=== PATIENT | male | born 1975 | race Caucasian/White ===

== ENCOUNTER 2016-09-18 23:53 | Inpatient (IN) | payer OTHER ==
--- NOTE | ~2016-09-18 | DS ---
Unit #: [id number] #: [id number] Patient: GIBRAN CABRERA [id number] [facility] [address] [place] [address] [id number] MR#: [id number] NAME: GIBRAN CABRERA. ROOM: [facility] Age: 41 Sex: M Admission Date: 09/18/2016 : 1975 Discharge Date: 09/22/2016 Attending Physician: Darien Castro M.D. Primary Care Physician: Antonia France M.D. DISCHARGE SUMMARY REASON FOR ADMISSION The patient is a 41-year-old, , white male, admitted after he had presented this facility complaining of ongoing alcohol use and suicidal ideation. HOSPITAL COURSE The patient was admitted to the [facility] unit and placed on suicide precautions. Given his inability to discontinue use of alcohol, the decision was made by this physician to discontinue Suboxone and the patient was placed on detoxification protocols for both alcohol and opioids. The patient exhibited suppressing little in the way of signs or symptoms of withdrawal leading this physician to suspect that the patient may be diverting his Suboxone. Whatever the case, his stay in the hospital was a brief and uneventful one. He was bright and euthymic. On 09/22/2016, he requested discharge on that date and it was so ordered. FINAL DIAGNOSES Opioid use disorder; alcohol use disorder; mood disorder, unspecified; asthma; gastroesophageal reflux disease. DISPOSITION ON DISCHARGE The patient is discharged on the following medications; Protonix 40 mg daily for GERD, Proventil HFA one puff q.4 hours p.r.n. shortness of air, Seroquel 200 mg at bedtime for mood stabilization. DISCHARGE INSTRUCTIONS No dietary or physical restrictions were placed upon the patient at the time of discharge. PROGNOSIS His prognosis remains guarded. Dictated by... Darien Castro M.D. CB/sofy TD: 09/22/2016 21:42 JOB #: [id number] Unit #: [id number] #: [id number] Patient: GIBRAN CABRERA DISCHARGE SUMMARY X Darien Castro MD X DISCHARGE SUMMARY
--- NOTE | ~2016-09-18 | PA ---
Unit #: [id number] #: [id number] Patient: GIBRAN CABRERA [id number] [place] [address] [id number] I MR#: [id number] NAME: GIBRAN CABRERA. ROOM: [facility] Age: 41 Sex: M Admission Date: 09/18/2016 : 1975 Date of Assessment: 09/19/2016 Attending Physician: Darien Castro M.D. Admitting Physician: Darien Castro M.D. Primary Care Physician: Antonia France M.D. PSYCHIATRIC ASSESSMENT IDENTIFYING INFORMATION The patient is a 41-year-old white male admitted with recurrent abuse of alcohol with suicidal ideation. INFORMANT(S) Patient and chart. RELIABILITY Good. CHIEF COMPLAINT None given. HISTORY OF PRESENT ILLNESS The patient is a 41-year-old white male admitted to the [address] [place] [address]. He was last discharged from this facility on 09/10 but relapsed in alcohol use almost immediately. He is also prescribed Seroquel, Neurontin and Suboxone and had voiced threat to commit suicide if not admitted to the hospital. Patient states that he is drinking 1.5 fifths of vodka on a daily basis and his last use was on the morning of admission. The patient's pulse on admission was 119. His blood alcohol .008. His CIWA score was 16. For a more complete history of present illness, please refer to previous dictated notes. PAST PSYCHIATRIC HISTORY Reviewed, no changes. FAMILY HISTORY/SOCIAL HISTORY Reviewed, no changes. MEDICAL HISTORY Reviewed, no changes. MEDICATION HISTORY 1. Seroquel. 2. Neurontin. 3. Protonix. 4. Suboxone. 5. Proventil. 6. Motrin. ALLERGIES Penicillin, morphine, albuterol. Unit #: [id number] #: [id number] Patient: GIBRAN CABRERA MENTAL STATUS EXAM At this time reveals the patient to be a well-developed, well-nourished white male appearing stated age. He is in no apparent physical distress at the time of the examination. He is awake, alert, oriented in all spheres. His mood is mildly dysphoric. His affect constricted. Speech is generally relevant and coherent. There are no gross deficits in memory or cognition noted. Intelligence is judged to be in the average range based on fund of knowledge. The patient is cooperative throughout the interview. He is currently reporting no suicidal or homicidal ideation. Denies any psychotic symptoms. His judgement and insight appear to be reasonably intact. ASSETS AND LIABILITIES Patient's assets, motivation for change. Liabilities, ongoing substance use. ADMITTING DIAGNOSES 1. Alcohol use disorder. 2. Opioid use disorder. 3. Chronic obstructive pulmonary disease. 4. Mood disorder, unspecified. PSYCHIATRIC PLAN/TREATMENT GOALS The patient remains hospitalized for safety and stabilization. At this point, I have informed the patient that I can no longer in good conscious continue to provide Suboxone even in the hospital given his ongoing abuse of alcohol. Accordingly, he has been placed on routine detoxification protocol for both opioids and alcohol. We will continue other previously prescribed home medications and suicide precautions are in place. ESTIMATED LENGTH OF STAY Five to seven days. Dictated by... Darien Castro M.D. ROXY/lili TD: 09/19/2016 16:09 JOB #: [id number] PSYCHIATRIC ASSESSMENT X Darien Castro MD X PSYCHIATRIC ASSESSMENT
--- NOTE | ~2016-09-18 | HP ---
Unit #: [id number] #: [id number] Patient: NITIN CABRERA [id number] [place] [address] [id number] MR#: [id number] NAME: NITIN CABRERA. ROOM: [facility] Age: 41 Sex: M Admission Date: 09/18/2016 : 1975 Attending Physician: Darien Castro M.D. Admitting Physician: Darien Castro M.D. Primary Care Physician: Antonia Franec M.D. HISTORY AND PHYSICAL History and physical was completed on 09/19/2016. HISTORY OF PRESENT ILLNESS Nitin is a 41-year-old male admitted to [facility] on 09/18/2016 for detox from alcohol. He has multiple previous admissions for the same. The most recent one was 09/03/2016. Reviewed the history and physical from that admission and there are no changes. Dictated by... Tori Hyde/eduardo TD: 09/30/2016 06:27 JOB #: [id number] HISTORY AND PHYSICAL X DORA SIMMONS APRN HISTORY AND PHYSICAL
--- NOTE | ~2016-09-18 | PN ---
Unit #: [id number] #: [id number] Patient: GIBRAN CABRERA [id number] [facility] [address] [place] [address] [id number] MR#: [id number] NAME: GIBRAN CABRERA. ROOM: [facility] Age: 41 Sex: M Admission Date: 09/18/2016 : 1975 Attending Physician: Darien Castro M.D. Admitting Physician: Darien Castro M.D. Primary Care Physician: Alma Motta PROGRESS NOTES DATE 09/21/2016 DISCUSSION The patient is abed, resting comfortably today. His detox from both alcohol and opiates is an uneventful one. Dictated by... Darien Castro M.D. CB/magdalena TD: 09/21/2016 12:41 JOB #: [id number] [facility] PROGRESS NOTES X Darien Castro MD X PROGRESS NOTE
--- NOTE | ~2016-09-18 | PN ---
Unit #: [id number] #: [id number] Patient: GIBRAN CABRERA [id number] [facility] [address] [place] [address] [id number] Rebecca MR#: [id number] NAME: GIBRAN CABRERA. ROOM: [facility] Age: 41 Sex: M Admission Date: 09/18/2016 : 1975 Attending Physician: Darien Castro M.D. Admitting Physician: Darien Castro M.D. Primary Care Physician: Alma Motta PROGRESS NOTES DATE 09/20/2016 DISCUSSION The patient voices no new complaints today apart from his wish to reinitiate Suboxone. I have explained to the patient that given his two recent admissions with alcohol use, I cannot in good conscious continue Suboxone and will instead continue his detoxification protocol. It is my suspicion that with this knowledge the patient will probably request discharge in the next day or so. Dictated by... Darien Castro M.D. CB/lili TD: 09/20/2016 18:17 JOB #: [id number] [facility] PROGRESS NOTES X Darien Castro MD PROGRESS NOTE
[~2016-09-18 23:53] MED LIST: ALBUTEROL17 GM INH; ALBUTEROL20 ml INH; ALPRAZOLAM PO; ATARAX PO; AUGMENTIN PO; AZITHROMYCIN250 MG PO; BACLOFEN10 MG PO; BENTYL10 MG PO; BUPRENORPHIN-N1 EACH SL; CARAFATE PO; CELEXA PO; CHRONULAC10 GM/151 PO; CIPRO PO; CLONAZEPAM0.5 MG PO; COUGH MED; DARVOCET-N 1001 TAB PO; DESYREL100 MG PO; DICLOFENAC PO; DOXYCYCLINE PO; FLAGYL PO; FLEXERIL PO; FLEXERIL10 M1 PO; FLEXERIL10 MG PO; FLOXIN OTIC5 M1 OP; FOLIC ACID1 MG PO; GABAPENTIN300 MG PO; GABAPENTIN800 MG PO; HEADACHE MEDICINE PO; HYDROCODON-ACE1 EAC1 PO; HYDROCODON-ACE1 EAC5; HYDROCODON-ACE1 EAC5 PO; HYDROCODONE-APA1 T33 PO; HYDROCODONE-APA1 T42; HYDROCODONE-APA1 T42 PO; IBUPROFEN PO; IBUPROFEN800 MG PO; KETOROLAC TROMET5 ML OD; KLONOPIN PO; KLONOPIN0.5 MG PO; KLONOPIN1 MG PO; KRISTALOSE20 G/PK1 PO; LACTULOSE10 G/15 M1 PO; LACTULOSE10 G/15 M2; LEVAQUIN750 MG PO; LIBRIUM PO; LIBRIUM25 M1 PO; LIBRIUM5 MG PO; LORTAB 10-5001 EACH PO; LORTAB 10/500 T1 TAB PO; LORTAB 2.5/5001 TAB PO; LORTAB 5/500 TA1 TA2 PO; LORTAB 5MG PO; LORTAB 7.5-3251 EACH PO; LORTAB 7.5-5001 TAB PO; LORTAB 7.51 TAB; MEDROL PO; MEDROL4 MG/DOSE- PO; MOBIC PO; MULTI-DAY VITAM1 TAB PO; MULTI-VITAMIN1 EAC1 PO; MULTIVITAMIN1 UDCAP PO; NEURONTIN; NEURONTIN600 MG PO; NEURONTIN800 MG; NEURONTIN800 MG PO; NO MEDICATIONS; NORCO 7.5-3251 EACH PO; ONE DAILY1 TA1 PO; PAXIL PO; PAXIL40 MG PO; PERCOCET; PERCOCET 51 UDTAB 5/ DOB; PERCOCET5/325 PO; PHENERGAN PO; PHENERGAN25 MG PO; PREDNISONE PO; PREVACID; PREVACID SOLUTA30 M1 DOB; PRILOSEC; PRILOSEC PO; PRILOSEC20 M1 PO; PRILOSEC20 MG PO; PRILOSEC40 MG; PRILOSEC40 MG PO; PROTONIX PO; PROZAC; PROZAC PO; PROZAC40 MG PO; SEIZURE MED; SEROQUEL PO; SUBOXONE; SUBOXONE 8 MG-1 EAC1 SL; SUBOXONE 8 MG-1 EACH PO; SUBOXONE 8 MG-1 EACH SL; SYMBICORT INH; TESSALON PERLE100 M1 PO; THIAMINE HCL100 M2 PO; THIAMINE HCL100 MG PO; TRAMADOL HCL50 M2 PO; TRAZODONE HCL100 MG PO; ULTRAM PO; VICODIN 5/500 T1 TAB PO; VICODIN PO; VISTARIL PO; VITAMINE B-1100 MG PO; VOLTAREN50 MG PO; VOLTAREN75 MG PO; XANAX0.5 MG PO; ZANTAC PO; ZANTAC150 MG PO; ZOFRAN; ZOFRAN ODT4 MG PO; ZOFRANODT PO; ZOLOFT; ZOLOFT PO; ZOLOFT100 MG PO; ZOLOFT50 MG PO; [UNRECOGNIZED DRUG - OTHER] PO
[2016-09-19 09:30] LABS: BASOPHIL% 0.4 % (0-2.5); EOSINOPHIL# 0.5 X10e3 (0-0.7); EOSINOPHIL% 7.4 % (0.0-7.0); HEMATOCRIT 43.2 % (38.0-50.0); HEMOGLOBIN 14.2 gm/dL (13.0-16.0); LYMPHOCYTE# 2.5 X10e3 (1.0-3.5); LYMPHOCYTE% 41.4 % (17.0-45.0); MEAN CELL VOLUME 93.7 FL (83-96); MEAN CORPUSCULAR HEMOGLOBIN 30.9 PG (28-34); MEAN PLATELET VOLUME 8.8 FL (6.5-11.5); MONOCYTE# 0.4 X10e3 (0-1.0); MONOCYTE% 7.4 % (3.0-12.0); NEUTROPHIL# 2.6 X10e3 (1.5-7.1); NEUTROPHIL% 43.4 % (40-75); PLATELET COUNT 219 X10e3 (140-420); RED BLOOD COUNT 4.61 X10e (3.90-5.60); RED CELL DISTRIBUTION WIDTH 14.8 % (11.0-15.5); WHITE BLOOD COUNT 6.1 X10e3 (4.0-10.5)
[2016-09-19 09:32] LABS: DIFF IND NO
[2016-09-19 09:55] LABS: THYROID STIMULATING HORMONE 0.99 uIU/ml (0.34-5.60)
[2016-09-19 10:02] LABS: FREE THYROXIN (T4) 0.85 ng/dL (0.58-1.64)
[2016-09-19 10:04] LABS: ALBUMIN SERUM 3.6 g/dL (3.5-5.0); ALKALINE PHOSPHATASE 67 U/L (32-92); ALT (SGPT) 132 U/L (10-40); AST (SGOT) 158 U/L (10-42); BILIRUBIN,TOTAL 0.3 mg/dL (0.2-2.0); BLOOD UREA NITROGEN 6 mg/dL (9-23); BUN/CREATININE RATIO 6.66; CALCIUM SERUM 8.4 mg/dL (8.4-10.2); CARBON DIOXIDE 31 mmol/L (22-31); CHLORIDE 104 mmol/L (100-111); CREATININE SERUM 0.9 mg/dL (0.6-1.4); GLOM FILT RATE Estimated ABOVE60 mL/min (>60); GLUCOSE FASTING 116 mg/dL (70-110); POTASSIUM 3.5 mmol/L (3.5-5.1); PROTEIN TOTAL SERUM 6.4 g/dL (6.0-8.3); SODIUM 145 mmol/L (135-145)
[2016-09-20 09:28] LABS: URINE APPEARANCE CLOUDY; URINE BILIRUBIN NEG (NEG); URINE BLOOD NEG (NEG); URINE COLOR DK YELLOW; URINE GLUCOSE NEG (NEG); URINE KETONE NEG (NEG); URINE LEUKOCYTE ESTERASE NEG (NEG); URINE NITRATE NEG (NEG); URINE PH 6.5 (5-8); URINE PROTEIN NEG (NEG); URINE SPECIFIC GRAVITY 1.023 (1.003-1.035)
== END 2016-09-22 15:15 | disposition home or self-care (01) | DRG 897 ==
LOC: P1E 23:53
PROVIDERS: Specialist
PROC: HZ2ZZZZ Detoxification Services for Substance Abuse Treatment (ICD-10-PCS; principal; 2016-09-18)
DX: F10.20 Alcohol dependence, uncomplicated (principal); F11.20 Opioid dependence, uncomplicated; R45.851 Suicidal ideations; J44.9 Chronic obstructive pulmonary disease, unspecified; F39 Unspecified mood [affective] disorder; J45.909 Unspecified asthma, uncomplicated; K21.9 Gastro-esophageal reflux disease without esophagitis
CPT/HCPCS: 80053; 81003; 84439; 84443; 85025; 86592

== ENCOUNTER 2016-12-03 12:12 | Emergency (ER) | payer OTHER ==
--- NOTE | ~2016-12-03 | CR72 ---
[facility] A Service of [facility] & [facility] RADIOLOGY TEXT RESULTS PATIENT: GIBRAN CABREAR LOCATION: [facility] : 71 UNIT #: [id number] AGE: [address]: Ariel Caldera MD SEX: M ORDER DR: [id number] [facility] [address] [place], [place] [address] [id number] MR#: [id number] Acc #: [id number] NAME: GIBRAN CABRERA : 1975 SEX: M STUDY DATE/TIME: 12/03/2016 12:47 UNIT: [facility] ROOM: STUDY DESCRIPTION: CR Chest Single View Portable Attending Physician: Ariel Caldera M.D. Ordering Physician: Ariel [id number] Drake Caldera Primary Care Physician: Primary Care Physician No MEDICAL IMAGING REPORT This report is preliminary unless electronic signature is present EXAM Chest portable 12/03/2016 1247 hours HISTORY 41-year-old man with dyspnea today. History of Suboxone therapy for 8 months. Anxiety. COMPARISON 07/27/2016 FINDINGS Portable upright chest demonstrates normal cardiac, mediastinal and hilar contours. Lungs are clear. There are no effusions or acute bone lesions. IMPRESSION No acute cardiopulmonary findings. Dictated by... Linda Dacosta M.D. THIS IS AN ELECTRONICALLY VERIFIED REPORT Linda Dacosta M.D. at 12/03/2016 2:28 PM CRIS/mariella TD: 12/03/2016 13:43 JOB #: [id number] MEDICAL IMAGING REPORT Page 1 of 1 COPY
--- NOTE | ~2016-12-03 | EKG ---
PATIENT: GIBRAN CABRERA UNIT #: [id number] Ventricular Rate: 100 BPM Atrial Rate: 100 BPM P-R Interval: 152 ms QRS Duration: 80 ms Q-T Interval: 358 ms QTC Calculation(Bezet): 461 ms P Austin: 48 degrees Calculated R Austin: 50 degrees Calculated T Austin: 27 degrees Diagnosis Line: Normal sinus rhythm Diagnosis Line: Normal ECG Diagnosis Line: When compared with ECG of 29-JUL-2016 16:26, Diagnosis Line: No significant change was found Diagnosis Line: Confirmed by MICHAEL MCLAIN MD ([id number]) on 12/05/2016 Diagnosis Line: 10:28:30 AM INTERPRETING MD: RAYNE MUÑOZ
[2016-12-03 12:58] LABS: BASOPHIL# 0.1 X10e3 (0-0.3); BASOPHIL% 0.7 % (0-2.5); EOSINOPHIL# 0.2 X10e3 (0-0.7); EOSINOPHIL% 2.8 % (0.0-7.0); HEMATOCRIT 45.4 % (38.0-50.0); HEMOGLOBIN 14.7 gm/dL (13.0-16.0); LYMPHOCYTE# 1.8 X10e3 (1.0-3.5); LYMPHOCYTE% 21.3 % (17.0-45.0); MEAN CELL VOLUME 93.1 FL (83-96); MEAN CORPUSCULAR HEMOGLOBIN 30.2 PG (28-34); MEAN CORPUSCULAR HGB CONC 32.4 g/dL (30-36); MEAN PLATELET VOLUME 8.5 FL (6.5-11.5); NEUTROPHIL# 5.3 X10e3 (1.5-7.1); NEUTROPHIL% 63.2 % (40-75); PLATELET COUNT 223 X10e3 (140-420); RED BLOOD COUNT 4.88 X10e (3.90-5.60); RED CELL DISTRIBUTION WIDTH 13.9 % (11.0-15.5); WHITE BLOOD COUNT 8.4 X10e3 (4.0-10.5)
[2016-12-03 13:01] LABS: POC - CKMB <1.0 ng/mL (0.0-7.9); POC - TROPONIN <0.05 ng/mL (<=0.05)
[2016-12-03 13:01] LABS: DIFF IND NO
[2016-12-03] MEDS ORDERED: ALBUTEROL17 GM INH (13:08)
[2016-12-03] MEDS ORDERED: PROAIR RESPICL90 MCG INH (13:08)
[2016-12-03 13:22] LABS: INR 0.9; PROTHROMBIN TIME (PATIENT) 9.9 SECONDS (9.6-11.5)
[2016-12-03 13:30] LABS: BILIRUBIN, DIRECT 0.1 mg/dL (0.0-0.2); BILIRUBIN,INDIRECT 0.8 mg/dL (0.0-0.9); BILIRUBIN,TOTAL 0.9 mg/dL (0.2-2.0); CALCIUM SERUM 8.7 mg/dL (8.4-10.2); CREATININE SERUM 0.7 mg/dL (0.6-1.4); GLOM FILT RATE Estimated 115.6 mL/min (>60); POTASSIUM 3.4 mmol/L (3.5-5.1); PROTEIN TOTAL SERUM 7.2 g/dL (6.0-8.3)
== END 2016-12-03 14:17 | disposition home or self-care (01) ==
LOC: CED 12:12
PROVIDERS: Emergency Medicine
DX: J44.1 Chronic obstructive pulmonary disease with (acute) exacerbation (principal); F17.200 Nicotine dependence, unspecified, uncomplicated; Z79.891 Long term (current) use of opiate analgesic; Z79.899 Other long term (current) drug therapy; Z88.5 Allergy status to narcotic agent; Z88.0 Allergy status to penicillin
CPT/HCPCS: 36415; 71010; 80048; 80076; 82553; 83605; 83880; 84484; 85025; 85610; 87040; 93005; 94640; 96374; 99284; J2930

== ENCOUNTER 2016-12-15 20:00 | Inpatient (IN) | payer OTHER ==
--- NOTE | ~2016-12-15 | PN ---
Unit #: [id number] #: [id number] Patient: NITIN CABRERA [id number] [facility] [address] [place] [address] [id number] MR#: [id number] NAME: NITIN CABRERA. ROOM: [facility] Age: 41 Sex: M Admission Date: 12/15/2016 : 1975 Attending Physician: Collin Ochoa M.D. Admitting Physician: Collin Ochoa M.D. Primary Care Physician: Primary Care Physician Charlotte WOODS PROGRESS NOTES DATE OF SERVICE 12/19/2016 DISCUSSION Nitin has decreased withdrawal symptoms today. His mood is a little better with a brighter affect although he continues to report depression. He continues to ruminate on suicide and on grief over his brother's loss. He is alert and fully oriented with a mild degree of confusion but no evidence of other evidence of delirium. ASSESSMENT Major depression, alcohol dependence. PLAN Continue current treatment plan anticipating discharge soon when the patient can contract for safety. Dictated by... Alma Webb/stanley TD: 12/24/2016 21:10 JOB #: [id number] [facility] PROGRESS NOTES Page 1 of 1 X Collin Ochoa MD PROGRESS NOTE
--- NOTE | ~2016-12-15 | PN ---
Unit #: [id number] #: [id number] Patient: NITIN CABRERA [id number] [facility] [address] [place] [address] [id number] I MR#: [id number] NAME: NITIN CABRERA. ROOM: [facility] Age: 41 Sex: M Admission Date: 12/15/2016 : 1975 Attending Physician: Collin Ochoa M.D. Admitting Physician: Collin Ochoa M.D. Primary Care Physician: Primary Care Physician Charlotte WOODS PROGRESS NOTES DATE OF SERVICE 12/18/2016 DISCUSSION Nitin continues to have significant withdrawal symptoms and has some episodes of confusion overnight. His mood remains depressed with a congruent affect. He was alert and fully oriented. His memory and concentration were intact. His thought processes were logical with no active psychosis but reports psychosis overnight. ASSESSMENT No major depression, alcohol dependence. PLAN Continue current precautions and detox protocol Dictated by... Alma Webb/stanley TD: 12/24/2016 21:16 JOB #: [id number] [facility] PROGRESS NOTES Page 1 of 1 X Collin Ochoa MD PROGRESS NOTE
--- NOTE | ~2016-12-15 | DS ---
Unit #: [id number] #: [id number] Patient: GIBRAN CABRERA [id number] [place] [address] [id number] MR#: [id number] NAME: GIBRAN CABRERA. ROOM: [facility] Age: 41 Sex: M Admission Date: 12/15/2016 : 1975 Discharge Date: 12/20/2016 Attending Physician: Collin Ochoa M.D. DISCHARGE SUMMARY REASON FOR ADMISSION Gibran is a 41-year-old man, well known to us from previous admissions. He reports that his brother was murdered by gunshot 2 weeks ago and that he recently relapsed after several weeks of sobriety. He had suicidal ideation and was admitted for stabilization. DIAGNOSTIC STUDIES LABORATORY RESULTS: Please see hospital chart. HOSPITAL COURSE Gibran was admitted and placed on suicide precautions and the alcohol detox protocol. His home medications including antidepressant medication were restarted. He participated briefly and appropriately in unit groups and activities. He was able to contract for safety on the date of discharge, and said that he wanted to attend the intensive outpatient program at our facility for followup. DISCHARGE DIAGNOSES AXIS I: Major depression, F33.2; alcohol dependence with withdrawal, uncomplicated, F10.230. AXIS II: No diagnosis. AXIS III: Chronic pain, asthma, gastroesophageal reflux disease. AXIS IV: AXIS V: DISCHARGE INSTRUCTIONS Follow up with CD-IOP at this facility. DISCHARGE MEDICATIONS Zoloft 100 mg daily for depression. Other medications were Neurontin 800 mg q.i.d. for pain, buprenorphine one tablet b.i.d. for pain, Seroquel 200 mg at bedtime for sleep, Protonix 40 mg daily for GERD, and Proventil inhaler 2 puffs every 4 hours as needed for shortness of air. CONDITION AT DISCHARGE Improved. PROGNOSIS Fair to good. DIET AND ACTIVITY Ad artie. Unit #: [id number] #: [id number] Patient: GIBRAN CABRERA Dictated by... Collin Ochoa M.D. MRH/modl TD: 12/24/2016 14:39 JOB #: [id number] DISCHARGE SUMMARY Page 1 of 1 X Collin Ochoa MD DISCHARGE SUMMARY
--- NOTE | ~2016-12-15 | PA ---
Unit #: [id number] #: [id number] Patient: NITIN CABRERA [id number] [facility] [address] [place] [address] [id number] MR#: [id number] NAME: NITIN CABRERA. ROOM: [facility] Age: 41 Sex: M Admission Date: 12/15/2016 : 1975 Date of Assessment: 12/16/2016 Attending Physician: Collin Ochoa M.D. Admitting Physician: Collin Ochoa M.D. Primary Care Physician: Primary Care Physician No PSYCHIATRIC ASSESSMENT DATE OF SERVICE 12/16/2016. INFORMANTS The patient reliable; OLOP, reliable. CHIEF COMPLAINT "I'm suicidal." HISTORY OF PRESENT ILLNESS Nitin is a 41-year-old man, well known to me from multiple admissions, who reports that his brother was murdered by gunshot 2 weeks ago and that he relapsed on drinking after that event despite several weeks of sobriety. He was unable to contract for safety and was readmitted for stabilization. PAST PSYCHIATRIC HISTORY Nitin has had multiple admissions to this facility. Please see previous assessments for this extensive psychiatric history. FAMILY PSYCHIATRIC HISTORY Significant for alcoholism. SOCIAL HISTORY The patient is single and is currently living with his family. Please see social history from previous assessments. PAST MEDICAL HISTORY Significant for history of opioid dependence, chronic pain, asthma, and genital herpes. MEDICATIONS Seroquel, Neurontin, Protonix, Suboxone, Proventil, and Motrin. ALLERGIES Penicillin, morphine, and albuterol. SUBSTANCE ABUSE HISTORY As noted above. MENTAL STATUS EXAMINATION Nitin presented as a mildly disheveled man who appeared his stated age. He was cooperative with the examination. His speech was spontaneous and Unit #: [id number] #: [id number] Patient: NITIN CABRERA easily understood. His musculoskeletal examination was calm. His mood was depressed with a congruent affect. He was alert and fully oriented. His memory and concentration were intact. His thought processes were logical with no psychosis. He did report ongoing suicidal ideation with a plan to shoot himself and could not contract for safety. Insight and judgment were fair. Fund of knowledge and abstraction were fair. ASSETS AND LIABILITIES Assets; the patient knows local resources and presents voluntarily for treatment. Liabilities; include difficulty maintaining sobriety, recent in family. ADMITTING DIAGNOSES AXIS I: Major depressive disorder, F33.2; alcohol dependence with withdrawal, F10.230. AXIS II: Antisocial personality traits. AXIS III: Chronic pain cirrhosis of the liver, genital herpes, and asthma. AXIS IV: AXIS V: PSYCHIATRIC PLAN The patient was admitted and placed on the alcohol detox protocol and suicide precautions. We will restart his antidepressant medication and continue other home medications as appropriate. A physical examination and laboratory studies will be ordered and reviewed. Treatment goals are resolution of SI, establishment of sobriety, improvement in insight, and improvement in coping skills. DISCHARGE PLANNING Follow up with primary care physician and community mental health. ESTIMATED LENGTH OF STAY 5 days. Dictated by... Collin Ochoa M.D. ROSARIO/sofy TD: 12/20/2016 11:06 JOB #: [id number] PSYCHIATRIC ASSESSMENT Page 1 of 1 X Collin Ochoa MD X PSYCHIATRIC ASSESSMENT
--- NOTE | ~2016-12-15 | PN ---
Unit #: [id number] #: [id number] Patient: NITIN CABRERA [id number] [facility] [address] [place] [address] [id number] I MR#: [id number] NAME: NITIN CABRERA. ROOM: [facility] Age: 41 Sex: M Admission Date: 12/15/2016 : 1975 Attending Physician: Collni Ochoa M.D. Admitting Physician: Collin Ochoa M.D. Primary Care Physician: Primary Care Physician Charlotte WOODS PROGRESS NOTES DATE 12/17/2016 DISCUSSION Nitin has active detox symptoms today and reports some confusion, although he appears fully oriented this morning. He is alert and fully oriented. His memory and concentration were fair and his thought processes are logical with no active psychosis today. He continues to report suicidal ideation. ASSESSMENT 1. Major depression. 2. Alcohol dependence. PLAN Continue current treatment plan and current medication regimen. Dictated by... Alma Webb/brandenh TD: 12/24/2016 21:24 JOB #: [id number] [facility] PROGRESS NOTES Page 1 of 1 X Collin Ochoa MD PROGRESS NOTE
--- NOTE | ~2016-12-15 | HP ---
Unit #: [id number] #: [id number] Patient: GIBRAN CABRERA [id number] [place] [address] [id number] MR#: [id number] NAME: GIBRAN CABRERA. ROOM: [facility] Age: 41 Sex: M Admission Date: 12/15/2016 : 1975 Attending Physician: Collin Ochoa M.D. Admitting Physician: Collin Ochoa M.D. Primary Care Physician: Primary Care Physician No HISTORY AND PHYSICAL HISTORY OF PRESENT ILLNESS The patient is a 41-year-old male, admitted to [facility] on 12/15/2016 for suicidal ideations and alcohol abuse. PAST MEDICAL HISTORY 1. Esophageal reflux. 2. Asthma. 3. Chronic obstructive pulmonary disease. 4. Hypertension. 5. Hepatitis C. 6. Cirrhosis. PAST SURGICAL HISTORY 1. Hernia surgery x2. 2. Neck surgery. SOCIAL HISTORY The patient is disabled. He lives alone. He smokes one and one half packs of cigarettes daily. He drinks a fifth of alcohol per day, and uses Suboxone. FAMILY MEDICAL HISTORY Noncontributory. ALLERGIES Penicillin and morphine. REVIEW OF SYSTEMS CONSTITUTIONAL: No fever or chills. HEENT: Denies any sore throat, ear pain or runny nose. CARDIOVASCULAR: Denies chest pain, irregular heart rhythm or palpitations. CHEST: Denies shortness of breath or cough. No hemoptysis. GASTROINTESTINAL: Denies nausea, vomiting, diarrhea or chronic constipation. ENDOCRINE: Denies history of increased thirst or urination. No recent significant weight loss or gain. GENITOURINARY: Denies dysuria, frequency, or hematuria. SKIN: Denies any rashes. HEMATOLOGIC: Denies history of increased bleeding or bruising. MUSCULOSKELETAL: Denies any hot, swollen joints. No generalized muscle pain. NEUROLOGIC: Denies problems with vision or speech. No frequent, severe headaches. No numbness, tingling or weakness in any extremities. Denies Unit #: [id number] #: [id number] Patient: GIBRAN CABRERA loss of bladder or bowel control. CURRENT MEDICATIONS Include: 1. Gabapentin 2. Protonix 3. Ventolin 4. Seroquel 5. Suboxone 6. Zoloft PHYSICAL EXAMINATION GENERAL: He is awake, alert, oriented, and in no acute distress. VITAL SIGNS: Temperature 97.6, heart rate 100, respirations 18, blood pressure 102/73. HEIGHT: 5 feet 10 inches. WEIGHT: 180 pounds. SKIN: Warm and dry without rash or lesion. HEENT: Normocephalic. TMs not viewed. Oral and nasal passages clear. Conjunctivae clear. PERRLA. EOMs intact. NECK: Supple without lymphadenopathy or thyromegaly. HEART: Regular rate and rhythm without murmur. LUNGS: Clear. ABDOMEN: Soft, nontender. : Not done. EXTREMITIES: No evidence of cyanosis, clubbing or edema. Moves all without focal deficit. NEUROLOGICAL: Grossly within normal limits. Cranial Nerves: II: Visual yeboah are intact. III, IV AND : Extraocular movements are intact. Pupils are equal, round and reactive to light. V: Facial sensation is grossly normal. VII: Facial movements and expression are normal. VIII: Auditory acuity grossly intact. IX, X: Uvula is midline. Phonation is normal. XI: Patient shrugs shoulders and turns head normally. XII: Tongue protrudes in the midline. Sensory and Motor Function: Sensory and motor sensation is grossly normal. Motor: moves all extremities well. Coordination: Gait is normal. Deep Tendon Reflexes: Intact. IMPRESSION 1. Psychiatric admission. 2. Alcohol abuse. 3. Nicotine dependence. 4. Esophageal reflux. 5. Asthma. 6. Chronic obstructive pulmonary disease. 7. Hypertension. 8. Hepatitis C. 9. Cirrhosis. RECOMMENDATIONS Psychiatric, per psychiatrist. MEDICAL No contraindications to participating in facility's activities. MEDICAL PROGNOSIS Good. Unit #: [id number] #: [id number] Patient: GIBRAN CABRERA MEDICAL CONDITION Stable. Dictated by... Tori Siddiqui/eduardo TD: 12/17/2016 05:40 JOB #: [id number] HISTORY AND PHYSICAL Page 1 of 1 X SHERMAN FERREIRA APRN HISTORY AND PHYSICAL
[~2016-12-15 20:00] MED LIST changes: +PROAIR RESPICL90 MCG INH
[2016-12-17 09:45] LABS: BASOPHIL% 0.2 % (0-2.5); DIFF IND NO; EOSINOPHIL# 0.3 X10e3 (0-0.7); EOSINOPHIL% 3.6 % (0.0-7.0); HEMATOCRIT 48.4 % (38.0-50.0); HEMOGLOBIN 15.6 gm/dL (13.0-16.0); LYMPHOCYTE# 2.2 X10e3 (1.0-3.5); LYMPHOCYTE% 24.1 % (17.0-45.0); MEAN CELL VOLUME 92.9 FL (83-96); MEAN CORPUSCULAR HEMOGLOBIN 29.9 PG (28-34); MEAN CORPUSCULAR HGB CONC 32.2 g/dL (30-36); MONOCYTE# 0.8 X10e3 (0-1.0); MONOCYTE% 8.4 % (3.0-12.0); NEUTROPHIL# 5.8 X10e3 (1.5-7.1); NEUTROPHIL% 63.7 % (40-75); PLATELET COUNT 174 X10e3 (140-420); RED BLOOD COUNT 5.22 X10e (3.90-5.60); RED CELL DISTRIBUTION WIDTH 14.8 % (11.0-15.5); WHITE BLOOD COUNT 9.1 X10e3 (4.0-10.5)
[2016-12-17 10:14] LABS: ALBUMIN SERUM 3.7 g/dL (3.5-5.0); BILIRUBIN,TOTAL 0.9 mg/dL (0.2-2.0); BUN/CREATININE RATIO 13.75; CREATININE SERUM 0.8 mg/dL (0.6-1.4); GLOM FILT RATE Estimated 109.5 mL/min (>60); POTASSIUM 3.9 mmol/L (3.5-5.1); PROTEIN TOTAL SERUM 6.8 g/dL (6.0-8.3)
== END 2016-12-20 10:50 | DRG 897 ==
LOC: P1E 22:19
PROVIDERS: Psychiatry & Neurology Psychiatry
PROC: HZ2ZZZZ Detoxification Services for Substance Abuse Treatment (ICD-10-PCS; principal; 2016-12-15)
DX: F10.230 Alcohol dependence with withdrawal, uncomplicated (principal); R45.851 Suicidal ideations; K74.60 Unspecified cirrhosis of liver; F32.9 Major depressive disorder, single episode, unspecified; Z72.811 Adult antisocial behavior; G89.29 Other chronic pain; A60.00 Herpesviral infection of urogenital system, unspecified; J45.909 Unspecified asthma, uncomplicated; Z88.0 Allergy status to penicillin; Z88.5 Allergy status to narcotic agent; Z88.8 Allergy status to other drugs, medicaments and biological substances; F17.210 Nicotine dependence, cigarettes, uncomplicated
CPT/HCPCS: 80053; 85025

== ENCOUNTER 2016-12-27 05:23 | Emergency (ER) | payer OTHER ==
--- NOTE | ~2016-12-27 | CR72 ---
[facility] A Service of [facility] RADIOLOGY TEXT RESULTS PATIENT: GIBRAN CABRERA LOCATION: SED : [birth year] UNIT #: [id number] AGE: [address]: Eren Ricci MD SEX: M ORDER DR: [id number] [place] [address] [id number] E MR#: [id number] Acc #: [id number] NAME: GIBRAN CABRERA : 1975 SEX: M STUDY DATE/TIME: 12/27/2016 5:56 UNIT: SED ROOM: STUDY DESCRIPTION: CR Chest Single View Portable Attending Physician: Eren Ricci M.D. Ordering Physician: Elias Larsen M.D. Primary Care Physician: Primary Care Physician No MEDICAL IMAGING REPORT This report is preliminary unless electronic signature is present. EXAM Portable chest one-view 12/27/2016 at 05:56 COMPARISON 12/03/2016. HISTORY Short of air, confusion and memory loss, symptoms new onset tonight. FINDINGS A single AP portable view of the chest shows both lungs to be clear. The heart is normal in size. The mediastinal contour is normal. No significant bone abnormalities are seen. IMPRESSION Normal portable chest. Dictated by... Teodoro Viveros M.D. THIS IS AN ELECTRONICALLY VERIFIED REPORT Teodoro Viveros M.D. at 12/27/2016 2:12 PM REI/sharita TD: 12/27/2016 07:06 JOB #: [id number] MEDICAL IMAGING REPORT Page 1 of 1
--- NOTE | ~2016-12-27 | EKG ---
PATIENT: GIBRAN CABRERA UNIT #: [id number] Ventricular Rate: 147 BPM Atrial Rate: 147 BPM P-R Interval: 128 ms QRS Duration: 74 ms Q-T Interval: 344 ms QTC Calculation(Bezet): 538 ms Calculated R Bessie: 74 degrees Calculated T Bessie: 59 degrees Diagnosis Line: Sinus tachycardia Diagnosis Line: Otherwise normal ECG Baseline wander Diagnosis Line: When compared with ECG of 03-DEC-2016 12:31, Diagnosis Line: T wave inversion no longer evident in Inferior Diagnosis Line: leads Diagnosis Line: Confirmed by MICHAEL MCLAIN MD ([id number]) on 12/30/2016 Diagnosis Line: 8:09:15 AM INTERPRETING MD: RAYNE MUÑOZ
[2016-12-27 05:58] LABS: BASOPHIL% 0.2 % (0-2.5); DIFF IND NO; EOSINOPHIL# 0.2 X10e3 (0-0.7); EOSINOPHIL% 2.2 % (0.0-7.0); HEMOGLOBIN 16.5 gm/dL (13.0-16.0); LYMPHOCYTE# 3.9 X10e3 (1.0-3.5); LYMPHOCYTE% 48.8 % (17.0-45.0); MEAN CELL VOLUME 90.6 FL (83-96); MEAN CORPUSCULAR HEMOGLOBIN 30.5 PG (28-34); MEAN CORPUSCULAR HGB CONC 33.6 g/dL (30-36); MEAN PLATELET VOLUME 9.1 FL (6.5-11.5); MONOCYTE# 0.9 X10e3 (0-1.0); MONOCYTE% 11.6 % (3.0-12.0); NEUTROPHIL% 37.2 % (40-75); PLATELET COUNT 277 X10e3 (140-420); RED BLOOD COUNT 5.41 X10e (3.90-5.60)
[2016-12-27 06:11] LABS: POC - CKMB 1.8 ng/mL (0.0-7.9); POC - TROPONIN <0.05 ng/mL (<=0.05)
[2016-12-27 06:13] LABS: ALBUMIN SERUM 4.7 g/dL (3.5-5.0); ALKALINE PHOSPHATASE 58 U/L (32-92); ALT (SGPT) 48 U/L (10-40); AST (SGOT) 52 U/L (10-42); BILIRUBIN,TOTAL 0.9 mg/dL (0.2-2.0); BLOOD UREA NITROGEN 7 mg/dL (9-23); CALCIUM SERUM 9.6 mg/dL (8.4-10.2); CARBON DIOXIDE 21 mmol/L (22-31); CHLORIDE 99 mmol/L (100-111); GLOM FILT RATE Estimated 91.8 mL/min (>60); GLUCOSE FASTING 108 mg/dL (70-110); POTASSIUM 3.1 mmol/L (3.5-5.1); PROTEIN TOTAL SERUM 8.5 g/dL (6.0-8.3); SODIUM 137 mmol/L (135-145)
[2016-12-27 06:15] LABS: ALCOHOL BLOOD <5 mg/dL ([, 0])
[2016-12-27 08:09] LABS: URINE SOURCE CLEAN CATCH
[2016-12-27 08:15] LABS: URINE APPEARANCE CLEAR; URINE BILIRUBIN NEG (NEG); URINE BLOOD NEG (NEG); URINE COLOR YELLOW; URINE GLUCOSE NEG (NORM); URINE LEUKOCYTE ESTERASE NEG (NEG); URINE NITRATE NEG (NEG); URINE PH 8.5 (5-8); URINE PROTEIN TRACE (NEG)
[2016-12-27 08:16] LABS: MICRO INDICATED? YES; URINE KETONE 2+ (NEG)
[2016-12-27 08:20] LABS: URINE BACTERIA NEG (NEG); URINE MUCUS PRESENT; URINE RBC 0-2 /[HPF] (0-2); URINE WBC 0-2 /[HPF] (0-5)
[2016-12-27 08:22] LABS: AMPHETAMINE POS (NEG); BARBITURATES NEG (NEG); BENZODIAZEPINES NEG (NEG); COCAINE NEG (NEG); MARIJUANA POS (NEG); OPIATES NEG (NEG); TRICYCLIC ANTIDEPRESSANTS NEG (NEG); U METHADONE NEG (NEG)
== END 2016-12-27 11:27 ==
LOC: SED 05:23
PROVIDERS: Emergency Medicine
DX: J44.9 Chronic obstructive pulmonary disease, unspecified (principal); E87.6 Hypokalemia; F19.10 Other psychoactive substance abuse, uncomplicated; F41.9 Anxiety disorder, unspecified; F17.200 Nicotine dependence, unspecified, uncomplicated; Z88.0 Allergy status to penicillin; Z88.5 Allergy status to narcotic agent
CPT/HCPCS: 71010; 80053; 80307; 81003; 82553; 84484; 85025; 93005; 94640; 96374; 96375; 99285; G0480; J2060; J2405

== ENCOUNTER 2016-12-27 07:39 | Inpatient (IN) | payer OTHER ==
--- NOTE | ~2016-12-27 | HP ---
Unit #: [id number] #: [id number] Patient: NITIN CABRERA [id number] [facility] [address] [place] [address] [id number] I MR#: [id number] NAME: NITIN CABRERA. ROOM: P185 Age: 41 Sex: M Admission Date: 12/27/2016 : 1975 Attending Physician: Collin Ochoa M.D. Admitting Physician: Collin Ochoa M.D. Primary Care Physician: Generic Doctor Not In System HISTORY AND PHYSICAL Nitin is a 41 year old admitted to [facility] because of his continued polysubstance abuse which includes marijuana, amphetamines and alcohol. He has had numerous admissions to this facility for the same. Patient was seen and H and P dated 12/16/16 was reviewed. This is current. No changes. Please see H and P dated 12/16/16. Dictated by... Minda Stoddard P.A.-C. for Alma Shine/lili TD: 12/27/2016 18:46 JOB #: [id number] HISTORY AND PHYSICAL Page 1 of X Minda Stoddard HISTORY AND PHYSICAL
--- NOTE | ~2016-12-27 | PN ---
Unit #: [id number] #: [id number] Patient: NITIN CABRERA [id number] [facility] [address] [place] [address] [id number] MR#: [id number] NAME: NITIN CABRERA. ROOM: 85 Age: 41 Sex: M Admission Date: 12/27/2016 : 1975 Attending Physician: Collin Ochoa M.D. Admitting Physician: Collin Ochoa M.D. Primary Care Physician: Generic Doctor Not In System [facility] PROGRESS NOTES DATE 12/31/2016 DISCUSSION Nitin is showing some improvement today. His mood is better with a brighter range of affect. He is alert and fully oriented with no psychosis and no confusion or delirium this morning. ASSESSMENT 1. Alcohol dependence. 2. Major depression. PLAN Anticipate discharge tomorrow, if the patient continues to clear. Dictated by... Alma Webb/eduardo TD: 01/01/2017 06:06 JOB #: [id number] [facility] PROGRESS NOTES Page 1 of 1 X Collin Ochoa MD X PROGRESS NOTE
--- NOTE | ~2016-12-27 | PN ---
Unit #: [id number] #: [id number] Patient: GIBRAN CABRERA [id number] [facility] [address] [place] [address] [id number] I MR#: [id number] NAME: GIBRAN CABRERA. ROOM: P185 Age: 41 Sex: M Admission Date: 12/27/2016 : 1975 Attending Physician: Collin Ochoa M.D. Admitting Physician: Collin Ochoa M.D. Primary Care Physician: Generic Doctor Not In System [facility] PROGRESS NOTES DATE 12/30/2016 DISCUSSION Gibran continues to have moderate detox symptoms today. He admits to some periods of confusion and disorientation. His mood is depressed with a congruent affect. He is alert and fully oriented with no evidence of psychosis today. He does report ongoing suicidal ideation. ASSESSMENT Major depression, alcohol dependence. PLAN Continue current treatment plan. Dictated by... Collin Ochoa M.D. MRH/gz TD: 12/30/2016 16:22 JOB #: [id number] [facility] PROGRESS NOTES Page 1 of 1 X Collin Ochoa MD PROGRESS NOTE
--- NOTE | ~2016-12-27 | PA ---
Unit #: [id number] #: [id number] Patient: NITIN CABRERA [id number] [facility] [address] [place] [address] [id number] I MR#: [id number] NAME: NITIN CABRERA. ROOM: [facility] Age: 41 Sex: M Admission Date: 12/27/2016 : 1975 Date of Assessment: Attending Physician: Collin Ochoa M.D. Admitting Physician: Collin Ochoa M.D. Primary Care Physician: Generic Doctor Not In System PSYCHIATRIC ASSESSMENT INFORMANTS The patient, reliable; OLOP, reliable. CHIEF COMPLAINT "I'm suicidal." HISTORY OF PRESENT ILLNESS Nitin is a 41-year-old male and is well known to this facility from multiple admissions in the past. His last admission was on 12/15/2016. He reports at this time that he is suicidal with no active plan and that he has been drinking one-fifth of vodka daily and smoking marijuana. He reports following his discharge after his last admission that he was only sober for one day following that discharge before he began drinking again. He said he feels more suicidal than he has felt in years at this time and he does not understand why and admits that he does have a lot of positive things going on in his life at this time. PAST PSYCHIATRIC HISTORY He has had multiple admissions to this facility. Please see previous assessments for his extensive psychiatric history. FAMILY PSYCHIATRIC HISTORY Significant for alcoholism. SOCIAL HISTORY This patient is single, currently living with his family. Please see social history from previous assessment. PAST MEDICAL HISTORY Significant for history of opioid dependence, chronic pain, asthma and genital herpes. MEDICATIONS Seroquel, Neurontin, Protonix, Suboxone, Proventil, and Motrin. He reports that most recently he has been off his Zoloft for 1 month, although he has been compliant with all other medications at this time. ALLERGIES Penicillin, morphine, and albuterol. SUBSTANCE ABUSE HISTORY As noted above. Unit #: [id number] #: [id number] Patient: NITIN CABRERA MENTAL STATUS EXAMINATION Nitin presents as a mildly disheveled man who is casually dressed and appears his stated age. He is cooperative with assessment and is alert and oriented to person, place, time, date and situation. His mood is dysthymic with a congruent affect. His speech is relevant and coherent with normal rate, and tone. Thought processes appear to be logical and goal directed. He endorses suicidal ideation at this time, but no plan. He denies AVH, and there are no overt symptoms of psychosis noted. Memory and intellectual functioning appeared to be grossly intact. Judgment and insight limited at this time. He reports fair sleep and adequate appetite and denies any side effects to the medications. ASSETS AND LIABILITIES Assets; the patient knows local resources and prevents voluntarily for treatment. Liabilities include difficulty maintaining sobriety and recent in the family. ADMITTING DIAGNOSES AXIS I: Major depressive disorder; alcohol dependence with withdrawal. AXIS II: Antisocial personality traits. AXIS III: Chronic pain, cirrhosis of the liver, genital herpes and asthma. AXIS IV: AXIS V: PSYCHIATRIC PLAN The patient was admitted and placed on alcohol detox protocol and suicide precautions. We will restart his antidepressant medication and continue other home medications as appropriate. Physical exam and laboratory studies will be ordered and reviewed. Treatment goals are resolution of SI, establishment of sobriety, improvement in insight, and improvement in coping skills. DISCHARGE PLAN Follow up with primary care physician and community mental health treatment resources. ESTIMATED LENGTH OF STAY 5 days. Dictated by... Lisa Mcclain APRN for Alma Webb/sofy TD: 12/30/2016 05:04 JOB #: [id number] Unit #: [id number] #: [id number] Patient: NITIN CABRERA PSYCHIATRIC ASSESSMENT Page 1 of 1 X LISA MCCLAIN PSYCHIATRIC ASSESSMENT
--- NOTE | ~2016-12-27 | DS ---
Unit #: [id number] #: [id number] Patient: NITIN CABRERA [id number] [place] [address] [id number] I MR#: [id number] NAME: NITIN CABRERA. ROOM: 85 Age: 41 Sex: M Admission Date: 12/27/2016 : 1975 Discharge Date: 01/01/2017 Attending Physician: Collin Ochoa M.D. Primary Care Physician: Generic Doctor Not In System DISCHARGE SUMMARY REASON FOR ADMISSION Nitin is a 41-year-old man, well known to this facility who came in reporting increasing suicidal ideation and drinking one-fifth of vodka daily together with marijuana use. He was unable to contract for safety and was admitted for stabilization. DIAGNOSTIC STUDIES LABORATORY RESULTS: Please see referring hospital records for toxicology reports. HOSPITAL COURSE The patient was admitted and placed on the opioid detox protocol and suicide precautions. His antidepressant and sleep medicines were restarted together with his primary care physician medications. He had mild episodes of confusion and disorientation which gradually resolved and he had no suicidal ideation, intent, or plan on the date of discharge. DISCHARGE DIAGNOSES AXIS I: Major depressive disorder; alcohol dependence with withdrawal. AXIS II: Antisocial personality traits. AXIS III: Chronic pain, cirrhosis of the liver, asthma, genital herpes. AXIS IV: AXIS V: DISCHARGE INSTRUCTIONS Follow up with CD-IOP at this facility and primary care physician. DISCHARGE MEDICATIONS Zoloft 100 mg daily for depression, Seroquel 200 mg at bedtime for insomnia. Primary care medicines included Neurontin 800 mg q.i.d. for pain, Suboxone one tablet b.i.d. for pain, Proventil inhaler 2 puffs every 4 hours as needed for asthma, Protonix 40 mg daily for GERD, and multivitamin tablet one tablet daily for general health. CONDITION AT DISCHARGE Improved. PROGNOSIS Fair to good. DIET AND ACTIVITY Unit #: [id number] #: [id number] Patient: NITIN CABRERA Ad artie. Dictated by... Collin Ochoa M.D. MR/sofy TD: 01/01/2017 15:27 JOB #: [id number] DISCHARGE SUMMARY Page 1 of 1 X Collin Ochoa MD DISCHARGE SUMMARY
--- NOTE | ~2016-12-27 | PN ---
Unit #: [id number] #: [id number] Patient: GIBRAN CABRERA [id number] [facility] [address] [place] [address] [id number] I MR#: [id number] NAME: GIBRAN CABRERA. ROOM: P185 Age: 41 Sex: M Admission Date: 12/27/2016 : 1975 Attending Physician: Collin Ochoa M.D. Admitting Physician: Collin Ochoa M.D. Primary Care Physician: Generic Doctor Not In System [facility] PROGRESS NOTES DATE OF SERVICE: 12/29/2016 This patient was seen and evaluated on December 29, 2016. He continues to report depressive symptoms. He denies any SI and contracts for safety, but reports poor sleep, inadequate appetite and feeling sad much of his days. He is attending groups and unit activities. The patient has previous admissions to [facility]. He will meet with his primary psychiatrist tomorrow, Dr. Ochoa. Dictated by... Mayra Newton A.P.R.N. for Collin Ochoa M.D. BRIGETTE/modl TD: 12/31/2016 16:56 JOB #: [id number] [facility] PROGRESS NOTES Page 1 of 1 X Mayra Newton PROGRESS NOTE
== END 2017-01-01 10:58 | DRG 881 ==
LOC: P1E 12:06
PROC: HZ2ZZZZ Detoxification Services for Substance Abuse Treatment (ICD-10-PCS; principal; 2016-12-27)
DX: F32.9 Major depressive disorder, single episode, unspecified (principal); I10 Essential (primary) hypertension; F10.239 Alcohol dependence with withdrawal, unspecified; J44.9 Chronic obstructive pulmonary disease, unspecified; F60.2 Antisocial personality disorder; J45.909 Unspecified asthma, uncomplicated; F17.210 Nicotine dependence, cigarettes, uncomplicated; Z88.0 Allergy status to penicillin
CPT/HCPCS: 86592

== ENCOUNTER 2017-01-06 17:26 | Inpatient (IN) | payer OTHER ==
--- NOTE | ~2017-01-06 | PN ---
Unit #: [id number] #: [id number] Patient: NITIN CABRERA [id number] [facility] [address] [place] [address] [id number] MR#: [id number] NAME: NITIN CABRERA. ROOM: [facility] Age: 41 Sex: M Admission Date: 01/06/2017 : 1975 Attending Physician: Collin Ochoa M.D. Admitting Physician: Collin Ochoa M.D. Primary Care Physician: Primary Care Physician [facility] PROGRESS NOTES DATE 01/11/2017 DISCUSSION Upon visiting with Nitin today he reports that he is feeling pretty good, denies physical symptoms of withdrawal at this time and states that he is looking forward to discharge this time and plans are to go to the [facility], which is in [facility] and he plans to go there Friday he said and it is a 30-day treatment program, transitional living. At this time, he denies suicidal or homicidal ideation. He denies any auditory or visual hallucinations and has no complaints at this time. ASSESSMENT Alcohol dependence and major depression. PLAN Continue current medications and continue plan for discharge on Friday with follow up at the [facility]. Dictated by... DONA Holley/aminta TD: 01/13/2017 16:41 JOB #: [id number] [facility] NOTES Page 1 of 1 X ALEXY MCCLAIN PROGRESS NOTE
--- NOTE | ~2017-01-06 | PN ---
Unit #: [id number] #: [id number] Patient: NITIN CABRERA [id number] [facility] [address] [place] [address] [id number] MR#: [id number] NAME: NITIN CABRERA. ROOM: [facility] Age: 41 Sex: M Admission Date: 01/06/2017 : 1975 Attending Physician: Collin Ochoa M.D. Admitting Physician: Collin Ochoa M.D. Primary Care Physician: Primary Care Physician Charlotet [facility] PROGRESS NOTES DATE OF SERVICE 01/10/2017 DISCUSSION Nitin continues to have active opiate detox withdrawal symptoms and states that he has to get off of his Suboxone in order to attend a manager long term care rehabilitation facility. His mood is depressed and anxious with a congruent affect. He is alert and fully oriented with no psychosis and no active hallucinations or confusion. He does have ongoing suicidal ideation. ASSESSMENT Polysubstance dependence Major depression. PLAN We will change the patient from the alcohol to the opiate detox protocol and can discontinue Suboxone. Dictated by... Alma Webb/stanley TD: 01/13/2017 22:18 JOB #: [id number] [facility] PROGRESS NOTES Page 1 of 1 X Collin Ochoa MD PROGRESS NOTE
--- NOTE | ~2017-01-06 | PN ---
Unit #: [id number] #: [id number] Patient: NITIN CABRERA [id number] [facility] [address] [place] [address] [id number] MR#: [id number] NAME: NITIN CABRERA. ROOM: P1 Age: 41 Sex: M Admission Date: 01/06/2017 : 1975 Attending Physician: Collin Ochoa M.D. Admitting Physician: Collin Ochoa M.D. Primary Care Physician: Primary Care Physician Charlotte [facility]OD[facility] PROGRESS NOTES DATE OF SERVICE: 01/09/2017 DISCUSSION Nitin is up and attending groups and activities this morning on an active basis. He still has mild tremulousness, but his confusion appears to have resolved. Mood remains depressed and dysphoric with a sad affect. He is alert and fully oriented with no psychosis. He has no suicidal ideation today. ASSESSMENT Alcohol dependence; major depressive disorder. PLAN Continue with current treatment plan. Dictated by... Alma Webb/sofy TD: 01/09/2017 15:31 JOB #: [id number] [facility] PROGRESS NOTES Page 1 of 1 X Collin Ochoa MD PROGRESS NOTE
--- NOTE | ~2017-01-06 | DS ---
Unit #: [id number] #: [id number] Patient: GIBRAN CABRERA [id number] [facility] [address] [place] [address] [id number] I MR#: [id number] NAME: GIBRAN CABRERA. ROOM: [facility] Age: 42 Sex: M Admission Date: 01/06/2017 : 1975 Discharge Date: 01/15/2017 Attending Physician: Collin Ochoa M.D. Primary Care Physician: Primary Care Physician No DISCHARGE SUMMARY REASON FOR ADMISSION Gibran is a 41-year-old man, who relapsed into using vodka and has also used methamphetamines. He was in the early stages of alcohol detox and was admitted for stabilization. DIAGNOSTIC STUDIES LABORATORY RESULTS: Please see hospital chart. HOSPITAL COURSE Gibran was admitted and placed on suicide precautions and the alcohol detox protocol. His home medications will be restarted. I encouraged him to consider referral to a 30-day inpatient program given the frequency of his relapses and detox stays and the increasing difficulty tolerating them. He agreed to consider this and agreed to taper off his Suboxone during this admission. He was changed from the alcohol to the opioids protocol and states that he plans to go to the [facility] in [place], [place]. He was able to contract for safety on the date of discharge. DISCHARGE DIAGNOSES AXIS I: Alcohol dependence with withdrawal, opioid dependence, and major depression. AXIS II: Antisocial personality traits. AXIS III: Chronic pain, cirrhosis of the liver, and genital herpes. AXIS IV: AXIS V: DISCHARGE INSTRUCTIONS Follow up with the [facility] in [place], [place]. DISCHARGE MEDICATIONS No prescriptions were provided. The patient was to continue on Zoloft 100 mg daily for depression, Seroquel 200 mg at bedtime for sleep, Neurontin 800 mg q.i.d. for pain, Protonix 40 mg daily for GERD, and Proventil inhaler 2 puffs every 4 hours as needed for shortness of air. CONDITION AT DISCHARGE Improved. PROGNOSIS Fair. Unit #: [id number] #: [id number] Patient: GIBRAN CABRERA DIET AND ACTIVITY Per primary care doctor. Dictated by... Collin Ochoa M.D. [facility]/sofy TD: 01/31/2017 13:38 JOB #: [id number] DISCHARGE SUMMARY Page 1 of 1 X Collin Ochoa MD DISCHARGE SUMMARY
--- NOTE | ~2017-01-06 | PN ---
Unit #: [id number] #: [id number] Patient: NITIN CABRERA [id number] [facility] [address] [place] [address] [id number] I MR#: [id number] NAME: NITIN CABRERA. ROOM: [facility] Age: 41 Sex: M Admission Date: 01/06/2017 : 1975 Attending Physician: Collin Ochoa M.D. Admitting Physician: Collin Ochoa M.D. Primary Care Physician: Primary Care Physician Charlotte WOODS PROGRESS NOTES DATE 01/13/2017 DISCUSSION Nitin continues to have hcvw-hc-zulwmepg detox symptoms today. His mood is depressed with a congruent affect. He is alert and fully oriented with mild confusion but no active psychosis. He continues to report some suicidal ideation. He is working towards placement in a longer term care facility. ASSESSMENT Alcohol dependence, major depression. PLAN Continue current treatment plan. Dictated by... Alma Webb/stanley TD: 01/18/2017 22:55 JOB #: [id number] [facility] PROGRESS NOTES Page 1 of 1 X Collin Ochoa MD PROGRESS NOTE
--- NOTE | ~2017-01-06 | HP ---
Unit #: [id number] #: [id number] Patient: NITIN CABRERA [id number] [facility] [address] [place] [address] [id number] I MR#: [id number] NAME: NITIN CABRERA. ROOM: P175 Age: 41 Sex: M Admission Date: 01/06/2017 : 1975 Attending Physician: Collin Ochoa M.D. Admitting Physician: Collin Ochoa M.D. Primary Care Physician: Primary Care Physician No HISTORY AND PHYSICAL HISTORY OF PRESENT ILLNESS Nitin is a 41 year old, [facility] his continued drug use. He has had numerous admissions to this facility for the same. The patient was seen and history and physical, dated 12/16/16 was reviewed. This is current. No changes. Please see history and physical, dated 12/16/16. Dictated by... Minda Stoddard P.A.-C. for Alma Shine/eduardo TD: 01/08/2017 06:22 JOB #: [id number] HISTORY AND PHYSICAL Page 1 of 1 X Minda Stoddard HISTORY AND PHYSICAL
--- NOTE | ~2017-01-06 | PN ---
Unit #: [id number] #: [id number] Patient: GIBRAN CABRERA [id number] [facility] [address] [place] [address] [id number] I MR#: [id number] NAME: GIBRAN CABRERA. ROOM: [facility] Age: 41 Sex: M Admission Date: 01/06/2017 : 1975 Attending Physician: Collin Ochoa M.D. Admitting Physician: Collin Ochoa M.D. Primary Care Physician: Primary Care Physician Charlotte VELASQUEZ NOTES DATE 01/12/2017 DISCUSSION Upon assessing the patient today, he was found in his room in bed appearing in no apparent discomfort. He reports today that he has been suffering from a little bit of joint pain/back pain, but other than that no complaints. He denies any physical symptoms of withdrawal at this time and he currently denies any suicidal or homicidal ideation and voices no plan or intent. He repeats that his plan is the same, to discharge and follow up at the [facility] and has no further complaints at this time. ASSESSMENT Alcohol dependence and major depression. PLAN Continue current medication and detox protocol. Dictated by... DONA Holley/aminta TD: 01/13/2017 16:44 JOB #: [id number] [facility] NOTES Page 1 of 1 X ALEXY MCCLAIN PROGRESS NOTE
--- NOTE | ~2017-01-06 | PA ---
Unit #: [id number] #: [id number] Patient: GIBRAN CABRERA [id number] [place] [address] [id number] MR#: [id number] NAME: GIBRAN CABRERA. ROOM: [facility] Age: 41 Sex: M Admission Date: 01/06/2017 : 1975 Date of Assessment: 01/07/2017 Attending Physician: Collin Ochoa M.D. Admitting Physician: Collin Ochoa M.D. Primary Care Physician: Primary Care Physician No PSYCHIATRIC ASSESSMENT INFORMANTS Patient, reliable; OLOP, reliable. CHIEF COMPLAINT Alcohol detox. HISTORY OF PRESENT ILLNESS The patient is a 41-year-old man, who was just discharged from this facility, but apparently relapsed immediately into using vodka and has also used methamphetamines. He had suicidal ideation as well but was in the early 4 stages of alcohol detox when he was presented and so he was admitted for that purpose. PAST PSYCHIATRIC HISTORY Multiple admissions to this facility and please see previous records. FAMILY PSYCHIATRIC HISTORY Significant for alcoholism. SOCIAL HISTORY The patient is single and currently staying with his family. Many of his family members abuse drugs making it difficult for him to maintain sobriety in the outpatient environment. PAST MEDICAL HISTORY Significant for history of opioid dependence, chronic pain, asthma, and genital herpes. The patient also has hepatic cirrhosis. MEDICATIONS Please see MAR. ALLERGIES Penicillin, morphine, and albuterol inhaler. SUBSTANCE USE HISTORY As noted above, the patient has extensive history of chemical dependence primarily focused on alcohol. MENTAL STATUS EXAMINATION The patient presented as a disheveled man, appearing older than his stated age. He was tremulous on the examination. Speech was soft, but easily understood. Musculoskeletal examination was tremulous. His mood was Unit #: [id number] #: [id number] Patient: GIBRAN CABRERA depressed and anxious with a congruent affect. He was alert and fully oriented. His memory and concentration were fair. His thought processes were logical. He showed no evidence of psychosis or confusion at this point. He reported suicidal ideation with a plan to shoot himself. Insight and judgment were fair. Fund of knowledge and abstraction were fair to poor. ASSETS AND LIABILITIES The patient knows local resources and presents voluntarily for treatment. Liabilities include frequent hospitalization and chronic alcoholism. ADMITTING DIAGNOSES AXIS I: Alcohol dependence with withdrawal, uncomplicated. Major depressive disorder. AXIS II: Antisocial personality traits. AXIS III: Chronic pain. Cirrhosis of the liver. General herpes. Asthma. AXIS IV: AXIS V: PSYCHIATRIC PLAN The patient was admitted and placed on suicide precautions and the alcohol detox protocol. His home medications will be restarted. I am strongly encouraging this patient to consider a 30-day inpatient program for establishment of long-term sobriety due to both his emotional and physical needs. TREATMENT GOALS Resolution of intoxication, resolution of SI, improvement in insight, and improvement in coping skills. DISCHARGE PLANNING Follow up with chemical dependence programing of patient's choice. ESTIMATED LENGTH OF STAY 5 days. Dictated by... Collin Ochoa M.D. ROSARIO/sofy TD: 01/07/2017 13:52 JOB #: [id number] PSYCHIATRIC ASSESSMENT Page 1 of 1 X Collin Ochoa MD X PSYCHIATRIC ASSESSMENT
--- NOTE | ~2017-01-06 | PN ---
Unit #: [id number] #: [id number] Patient: NITIN CABRERA [id number] [facility] [address] [place] [address] [id number] MR#: [id number] NAME: NITIN CABRERA. ROOM: [facility] Age: 41 Sex: M Admission Date: 01/06/2017 : 1975 Attending Physician: Collin Ochoa M.D. Admitting Physician: Alma Webb PROGRESS NOTES DATE OF SERVICE: 01/08/2017 DISCUSSION Nitin continues to have active withdrawal symptoms today. His mood is depressed with a congruent affect. He is alert and fully oriented with no active confusion or psychosis. He is shaky and tremulous upon exam and continues to endorse some suicidal ideation. ASSESSMENT Alcohol dependence and major depression. PLAN Continue current medications and detox protocol. Dictated by... Alma WebbH/arnoldl TD: 01/09/2017 15:32 JOB #: [id number] [facility] PROGRESS NOTES Page 1 of 1 X Collin Ochoa MD PROGRESS NOTE
[2017-01-08 09:38] LABS: BASOPHIL% 0.2 % (0-2.5); EOSINOPHIL# 0.5 X10e3 (0-0.7); HEMATOCRIT 48.4 % (38.0-50.0); HEMOGLOBIN 15.7 gm/dL (13.0-16.0); LYMPHOCYTE# 2.5 X10e3 (1.0-3.5); LYMPHOCYTE% 32.9 % (17.0-45.0); MEAN CELL VOLUME 90.7 FL (83-96); MEAN CORPUSCULAR HEMOGLOBIN 29.5 PG (28-34); MEAN CORPUSCULAR HGB CONC 32.5 g/dL (30-36); MEAN PLATELET VOLUME 8.9 FL (6.5-11.5); MONOCYTE# 0.6 X10e3 (0-1.0); MONOCYTE% 7.4 % (3.0-12.0); NEUTROPHIL# 4.1 X10e3 (1.5-7.1); NEUTROPHIL% 53.5 % (40-75); PLATELET COUNT 265 X10e3 (140-420); RED BLOOD COUNT 5.34 X10e (3.90-5.60); RED CELL DISTRIBUTION WIDTH 14.4 % (11.0-15.5); WHITE BLOOD COUNT 7.7 X10e3 (4.0-10.5)
[2017-01-08 09:39] LABS: DIFF IND NO
[2017-01-08 09:49] LABS: ALBUMIN SERUM 3.8 g/dL (3.5-5.0); BILIRUBIN,TOTAL 0.6 mg/dL (0.2-2.0); CREATININE SERUM 0.8 mg/dL (0.6-1.4); GLOM FILT RATE Estimated 109.5 mL/min (>60); POTASSIUM 4.1 mmol/L (3.5-5.1); PROTEIN TOTAL SERUM 6.5 g/dL (6.0-8.3)
== END 2017-01-15 11:30 | DRG 897 ==
LOC: P1E 20:04
PROVIDERS: Psychiatry & Neurology Psychiatry
PROC: HZ2ZZZZ Detoxification Services for Substance Abuse Treatment (ICD-10-PCS; principal; 2017-01-06)
DX: F10.230 Alcohol dependence with withdrawal, uncomplicated (principal); R45.851 Suicidal ideations; K74.60 Unspecified cirrhosis of liver; B00.89 Other herpesviral infection; F32.9 Major depressive disorder, single episode, unspecified; F60.2 Antisocial personality disorder; G89.29 Other chronic pain; J45.909 Unspecified asthma, uncomplicated; Z88.0 Allergy status to penicillin; Z88.5 Allergy status to narcotic agent; Z88.8 Allergy status to other drugs, medicaments and biological substances; Y90.0 Blood alcohol level of less than 20 mg/100 ml
CPT/HCPCS: 80053; 85025; 86592

== ENCOUNTER 2017-02-12 20:00 | Inpatient (IN) | payer OTHER ==
[~2017-02-12] VITALS: Ht 176.5 cm; Wt 86.2 kg
--- NOTE | ~2017-02-12 | PN ---
Unit #: [id number] #: [id number] Patient: NITIN CABRERA [id number] [facility] [address] [place] [address] [id number] I MR#: [id number] NAME: NITIN CABRERA. ROOM: [facility] Age: 42 Sex: M Admission Date: 02/12/2017 : 1975 Attending Physician: Collin Ochoa M.D. Admitting Physician: Collin Ochoa M.D. Primary Care Physician: Primary Care Physician Charlotte VELASQUEZ NOTES DATE OF SERVICE 02/14/2017 DISCUSSION Nitin is upset that he has not been able to get his Suboxone here but does not appear be having any (1)____ opiate withdrawal symptoms. His mood today is a little better and he denies feeling further suicidal. He states he is going to go to a local detention house but states that his intake is tomorrow morning, which would be unusual but certainly not out of the normal possibility. He states that his aunt will take him to this facility and request discharge in the morning. ASSESSMENT major depression, alcohol dependence. PLAN We will arrange for the patient's discharge in the morning as he requests. Dictated by... Alma Webb/stanley TD: 02/17/2017 22:57 JOB #: [id number] PEGGY VELASQUEZ NOTES Page 1 of 1 X Collin Ochoa MD X PROGRESS NOTE
--- NOTE | ~2017-02-12 | HP ---
Unit #: [id number] #: [id number] Patient: GIBRAN CABRERA [id number] [place] [address] [id number] I MR#: [id number] NAME: GIBRAN CABRERA. ROOM: [facility] Age: 42 Sex: M Admission Date: 02/12/2017 : 1975 Attending Physician: Collin Ochoa M.D. Admitting Physician: Collin Ochoa M.D. Primary Care Physician: Primary Care Physician No HISTORY AND PHYSICAL HISTORY OF PRESENT ILLNESS Patient is a 42-year-old male admitted to [facility] on 02/12/2017 to detox from alcohol. PAST MEDICAL HISTORY 1. GERD. 2. Asthma. 3. COPD. 4. Hypertension. 5. Hepatitis C. 6. Cirrhosis. 7. History of neck fracture. PAST SURGICAL HISTORY 1. Hernia x2. 2. Neck surgery. ALLERGIES Penicillin and morphine. SOCIAL HISTORY Patient is disabled. He lives alone. He smokes 1 pack of cigarettes daily and drinks 1 liter of vodka per day. FAMILY HISTORY Noncontributory. REVIEW OF SYSTEMS CONSTITUTIONAL: No fever or chills. HEENT: Denies any sore throat, ear pain or runny nose. CARDIOVASCULAR: Denies chest pain, irregular heart rhythm or palpitations. PULMONARY: He complains of wheezing. GASTROINTESTINAL: Denies nausea, vomiting, diarrhea or chronic constipation. ENDOCRINE: Denies history of increased thirst or urination. No recent significant weight loss or gain. GENITOURINARY: Denies dysuria, frequency, or hematuria. SKIN: Denies any rashes. HEMATOLOGIC: Denies history of increased bleeding or bruising. MUSCULOSKELETAL: Denies any hot, swollen joints. No generalized muscle pain. NEUROLOGIC: Denies problems with vision or speech. No frequent, severe headaches. No numbness, tingling or weakness in any extremities. Denies Unit #: [id number] #: [id number] Patient: GIBRAN CABRERA loss of bladder or bowel control. CURRENT MEDICATIONS 1. Proventil. 2. Zoloft. 3. Suboxone. 4. Neurontin. 5. Protonix. 6. Seroquel. PHYSICAL EXAMINATION GENERAL: He is awake, alert, oriented, in no acute distress. VITAL SIGNS: Temperature 98.0, heart rate 88, respirations 16, blood pressure 111/72. HEIGHT: 5 feet 9. WEIGHT: 190 pounds. SKIN: Warm and dry without rash or lesion. HEENT: Normocephalic. TMs not viewed. Oral and nasal passages clear. Conjunctivae clear. PERRLA. EOMs intact. NECK: Supple without lymphadenopathy or thyromegaly. HEART: Regular rate and rhythm without murmur. LUNGS: Wheezing in right and left upper lobes. ABDOMEN: Soft, nontender. : Not done. EXTREMITIES: No evidence of cyanosis, clubbing or edema. Moves all without focal deficit. NEUROLOGICAL: Grossly within normal limits. Cranial Nerves: II: Visual yeboah are intact. III, IV AND : Extraocular movements are intact. Pupils are equal, round and reactive to light. V: Facial sensation is grossly normal. VII: Facial movements and expression are normal. VIII: Auditory acuity grossly intact. IX, X: Uvula is midline. Phonation is normal. XI: Patient shrugs shoulders and turns head normally. XII: Tongue protrudes in the midline. Sensory and Motor Function: Sensory and motor sensation is grossly normal. Motor: moves all extremities well. Coordination: Gait is normal. Deep Tendon Reflexes: Intact. IMPRESSION 1. Psychiatric admission. 2. Alcohol dependence. 3. Nicotine dependence. 4. Gastroesophageal reflux disease. 5. Asthma. 6. Chronic obstructive pulmonary disease. 7. Hypertension. 8. Hepatitis C. 9. Cirrhosis. 10. History of a neck fracture. RECOMMENDATIONS PSYCHIATRIC: Per psychiatrist. MEDICAL: No contraindication to participate in facility's activities. MEDICAL PROGNOSIS Fair. Unit #: [id number] #: [id number] Patient: GIBRAN CABRERA MEDICAL CONDITION Stable. Dictated by... Tori Siddiqui/lili TD: 02/13/2017 22:55 JOB #: [id number] HISTORY AND PHYSICAL Page 1 of 1 X SHERMAN FERREIRA APRN HISTORY AND PHYSICAL
--- NOTE | ~2017-02-12 | PA ---
Unit #: [id number] #: [id number] Patient: NITIN CABRERA [id number] [facility] [address] [place] [address] [id number] MR#: [id number] NAME: NITIN CABRERA. ROOM: [facility] Age: 42 Sex: M Admission Date: 02/12/2017 : 1975 Date of Assessment: Attending Physician: Collin Ochoa M.D. Admitting Physician: Collin Ochoa M.D. PSYCHIATRIC ASSESSMENT INFORMANTS The patient partially reliable; OLOP, reliable. CHIEF COMPLAINT Suicidal ideation. HISTORY OF PRESENT ILLNESS Nitin is a 42-year-old man, known to me from multiple admissions to this facility, who came in reporting relapse on alcohol 3 days after leaving this hospital. He said that he has a history of withdrawal seizures and DTs and hallucinations. He reported suicidal ideation, but no homicidal ideation and was readmitted. PAST PSYCHIATRIC HISTORY As noted, Nitin has had multiple previous admissions to this facility, the last in late December of this year. Please see previous records for details. FAMILY PSYCHIATRIC HISTORY Alcoholism. SOCIAL HISTORY The patient is single and currently staying with his family. Many of his family members abused drugs, making him for difficult to maintain sobriety in the outpatient environment. He is unemployed and on disability. PAST MEDICAL HISTORY Opiate dependence, chronic pain, asthma, and genital herpes. The patient also appears to have hepatic cirrhosis. MEDICATIONS Please see MAR. ALLERGIES Morphine, penicillin, and albuterol. SUBSTANCE ABUSE HISTORY Extensive as noted in previous assessments. MENTAL STATUS EXAMINATION Nitin presented as a mildly disheveled man, who appeared older than his stated age. He was tremulous on examination. His mood was depressed with a decreased range of affect. He was alert and fully oriented with no Unit #: [id number] #: [id number] Patient: NITIN CABRERA evidence of confusion or psychosis. He reported suicidal ideation and feared he would drink himself to . He denied homicidal ideation. Insight and judgment, fair. Fund of knowledge and abstraction, fair to poor. ASSETS AND LIABILITIES The patient knows local resources and presents voluntarily for treatment. Liabilities are frequent hospitalizations and chronic alcoholism. ADMITTING DIAGNOSES AXIS I: Major depressive disorder, recurrent; alcohol dependence, withdrawal, uncomplicated. AXIS II: Antisocial personality traits. AXIS III: Chronic pain, cirrhosis of the liver, herpes. AXIS IV: AXIS V: PSYCHIATRIC PLAN The patient was admitted and placed on suicide precautions and the alcohol detox protocol. His home medications will be restarted and the patient once again strongly encouraged to consider a 30-day program. TREATMENT GOALS Establishment of sobriety, improvement in insight, and improvement in coping skills. DISCHARGE PLANNING Follow up with chemical dependence programing of the patient's choice. ESTIMATED LENGTH OF STAY 5 days. Dictated by... Collin Ochoa M.D. ROSARIO/sofy TD: 02/16/2017 11:38 JOB #: [id number] PSYCHIATRIC ASSESSMENT Page 1 of 1 X Collin Ochoa MD X PSYCHIATRIC ASSESSMENT
[2017-02-13 10:47] LABS: AMPHETAMINE NEG (NEG); BARBITURATES NEG (NEG); BENZODIAZEPINES POS (NEG); COCAINE NEG (NEG); MARIJUANA NEG (NEG); OPIATES NEG (NEG); TRICYCLIC ANTIDEPRESSANTS POS (NEG); U METHADONE NEG (NEG)
== END 2017-02-15 08:15 | disposition home or self-care (01) | DRG 885 ==
LOC: P1E 21:42
PROVIDERS: Psychiatry & Neurology Psychiatry
DX: F33.9 Major depressive disorder, recurrent, unspecified (principal); K74.60 Unspecified cirrhosis of liver; F10.239 Alcohol dependence with withdrawal, unspecified; G89.29 Other chronic pain; F60.2 Antisocial personality disorder
CPT/HCPCS: 80307; 86592

== ENCOUNTER 2017-03-07 19:50 | Inpatient (IN) | payer OTHER ==
[~2017-03-07] VITALS: Ht 177.8 cm; Wt 74.8 kg
--- NOTE | ~2017-03-07 | HP ---
Unit #: [id number] #: [id number] Patient: GIBRAN CABRERA [id number] [facility] [address] [place] [address] [id number] I MR#: [id number] NAME: GIBRAN CABRERA. ROOM: [facility] Age: 42 Sex: M Admission Date: 03/07/2017 : 1975 Attending Physician: Collin Ochoa M.D. Admitting Physician: Collin Ochoa M.D. Primary Care Physician: Primary Care Physician No HISTORY AND PHYSICAL HISTORY OF PRESENT ILLNESS The patient is a 42-year-old male admitted to [facility] on 03/07/2017 to detox from alcohol. Patient had a recent admission on 02/12/2017 where a full history and physical was completed. That history and physical has been reviewed. The only changes that need to be made are patient now complains of respiratory symptoms. Otherwise, please see H and P dated 02/12/2017. Dictated by... Tori Siddiqui/lili TD: 03/08/2017 14:29 JOB #: [id number] HISTORY AND PHYSICAL Page 1 of 1 X SHERMAN FERREIRA APRN HISTORY AND PHYSICAL
--- NOTE | ~2017-03-07 | PN ---
Unit #: [id number] #: [id number] Patient: GIBRAN CABRERA [id number] [facility] [address] [place] [address] [id number] MR#: [id number] NAME: GIBRAN CABRERA. ROOM: [facility] Age: 42 Sex: M Admission Date: 03/07/2017 : 1975 Attending Physician: Collin Ochoa M.D. Admitting Physician: Collin Ochoa M.D. Primary Care Physician: Primary Care Physician Charlotte WOODS PROGRESS NOTES DATE 03/10/2017 DISCUSSION Upon today's assessment, Mr. Cabrera was found ambulating the hallways and states "I feel better." He reports post discharge, he plans to followup with AA/NA and [facility] He feels that he will be ready for discharge possibly Friday and of this week. At this time, the patient reports minimal signs and symptoms of withdrawal as evidenced by minor tremor in the bilateral upper extremities as well as some intermittent nausea. At this time, he denies suicidal/homicidal ideation and verbalizes no plan or intent and he denies auditory/visual hallucinations and no overt symptoms of psychosis was noted. PLAN We will continue to monitor Mr. Cabrera via the alcohol detox protocol as well as q. 15 minute checks for safety and encouraged him to attend groups/programming. Dictated by... DONA Holley/lili TD: 03/13/2017 23:02 JOB #: [id number] [facility] PROGRESS NOTES Page 1 of 1 X ALEXY MCCLAIN PROGRESS NOTE
--- NOTE | ~2017-03-07 | PN ---
Unit #: [id number] #: [id number] Patient: GIBRAN CABRERA [id number] [facility] [address] [place] [address] [id number] I MR#: [id number] NAME: GIBRAN CABRERA. ROOM: [facility] Age: 42 Sex: M Admission Date: 03/07/2017 : 1975 Attending Physician: Collin Ochoa M.D. Admitting Physician: Collin Ochoa M.D. Primary Care Physician: Primary Care Physician No [facility] PROGRESS NOTES DATE OF SERVICE: 03/09/2017 Upon today's assessment, Mr. Cabrera is ambulating in the hallway, and appearing in no apparent distress. He reports minimal to moderate signs and symptoms of withdrawal at this time, most notably is some fine bilateral tremor in the upper extremities. He reports some nausea and has been receiving p.r.n.'s for nausea appropriately. He has partially attended groups today. He currently reports no suicidal or homicidal ideation and verbalizes no plan or intent at this time and contracts for safety. He denies auditory or visual hallucinations and no overt symptoms of psychosis were noted today. PLAN We will continue to encourage Mr. Cabrera to attend dual diagnosis program in groups and monitor him via the alcohol detox protocol as well q.15 minute checks for safety. Dictated by... Patti GilliamRKarina for Collin Ochoa M.D. BRIGETTE/modl TD: 03/10/2017 07:47 JOB #: [id number] [facility] PROGRESS NOTES Page 1 of 1 X Mayra Newton PROGRESS NOTE
--- NOTE | ~2017-03-07 | PA ---
Unit #: [id number] #: [id number] Patient: NITIN BRYANT [id number] [facility] [address] [place] [address] [id number] I MR#: [id number] NAME: NITIN BRYANT. ROOM: [facility] Age: 42 Sex: M Admission Date: 03/07/2017 : 1975 Date of Assessment: 03/08/2017 Attending Physician: Collin Ochoa M.D. Admitting Physician: Collin Ochoa M.D. Primary Care Physician: Primary Care Physician No PSYCHIATRIC ASSESSMENT INFORMANT Patient, partially reliable; OLOP, reliable. CHIEF COMPLAINT Suicidal ideation and alcohol abuse. HISTORY OF PRESENT ILLNESS Mr. Bryant is a 42-year-old male, known to me from multiple admissions to this facility. Last admission was on 02/12/2017. Mr. Bryant reports that he was sober for 1 week before relapsing 8 days ago when he began to use one-fifth of vodka per day. Due to the fact that he has stopped attending meetings and lost the sense of support. At this time, he reports moderate withdrawal and denies drug abuse. He does report suicidal ideation with a plan to OD on medication. He denies homicidal ideation. PAST PSYCHIATRIC HISTORY As noted, Nitin has had multiple previous admissions to this facility. The last was in January of this year. Please see previous records for details. FAMILY PSYCHIATRIC HISTORY Alcoholism. SOCIAL HISTORY The patient is single and currently staying with family. Many of his family members abused drugs, making it difficult for him to maintain sobriety in the outpatient environment. He is unemployed and on disability. PAST MEDICAL HISTORY Opioid dependence, chronic pain, asthma and genital herpes. The patient also appears to have hepatic cirrhosis. MEDICATIONS See SEP. ALLERGIES Morphine, penicillin, and albuterol. SUBSTANCE ABUSE HISTORY Extensive as noted in previous assessments. MENTAL STATUS EXAM Unit #: [id number] #: [id number] Patient: NITIN BRYANT presents as a mildly disheveled man who appears older than his stated age. He was tremulous upon examination. His mood was depressed with decreased range of affect. He was alert and fully oriented, but no evident confusion or psychosis. He reports suicidal ideation with no specific plan upon the time of examination. He denied homicidal ideation. Insight and judgment appear fair. Fund of knowledge and abstraction fair to poor. ASSETS AND LIABILITIES The patient knows local resources and presents voluntarily for treatment. Liabilities are frequent hospitalizations and chronic alcoholism. ADMITTING DIAGNOSES AXIS I: Major depressive disorder, recurrent, alcohol dependence, withdrawal, uncomplicated. AXIS II: Antisocial personality traits. AXIS III: Chronic pain, cirrhosis of the liver and herpes. AXIS IV: AXIS V: PSYCHIATRIC PLAN The patient was admitted and placed on suicidal precautions and alcohol detox protocol. His home medications will be restarted and the patient once again will be strongly encouraged to consider a 30 day program. TREATMENT GOALS Establishment of sobriety, improvement in insight, improvement in coping skills. DISCHARGE PLAN Follow up with chemical dependency program of his choice. ESTIMATED LENGTH OF STAY 5 days. Dictated by... Mayra Newton A.P.R.N. for Collin Ochoa M.D. BRIGETTE/modl TD: 03/10/2017 02:38 JOB #: [id number] PSYCHIATRIC ASSESSMENT Page 1 of 1 X Mayra Newton PSYCHIATRIC ASSESSMENT
--- NOTE | ~2017-03-07 | CO ---
Unit #: [id number] #: [id number] Patient: GIBRAN CABRERA [id number] [facility] [address] [place] [address] [id number] I MR#: [id number] NAME: GIBRAN CABRERA. ROOM: [facility] Age: 42 Sex: M Admission Date: 03/07/2017 : 1975 Attending Physician: Collin Ochoa M.D. Primary Care Physician: Primary Care Physician No Consultation Date: 03/08/2017 CONSULTATION REPORT ORDERING PROVIDER Dr. Ochoa. REASON FOR CONSULTATION Cough and congestion. SUBJECTIVE The patient reports that for the last few days, he has had pressure in his chest, especially with coughing. He reports a both dry and productive cough. He is short of breath and wheezing. He denies any fever or upper respiratory complaints. OBJECTIVE Wheezing noted in all lung yeboah. Vital signs are stable. He is afebrile. The remainder of his examination was unremarkable. ASSESSMENT Bronchitis. PLAN Plan is to start him on azithromycin for antibiotic therapy, prednisone, and Robitussin DM. Dictated by... Tori Siddiqui/sofy TD: 03/09/2017 08:44 JOB #: [id number] CONSULTATION REPORT Page 1 of 1 X SHERMAN FERREIRA APRN CONSULTATION REPORT
[2017-03-10 09:42] LABS: BASOPHIL# 0.1 X10e3 (0-0.3); EOSINOPHIL# 0.4 X10e3 (0-0.7); EOSINOPHIL% 3.3 % (0.0-7.0); HEMATOCRIT 43.8 % (38.0-50.0); HEMOGLOBIN 13.9 gm/dL (13.0-16.0); LYMPHOCYTE# 3.4 X10e3 (1.0-3.5); LYMPHOCYTE% 26.6 % (17.0-45.0); MEAN CELL VOLUME 90.3 FL (83-96); MEAN CORPUSCULAR HEMOGLOBIN 28.6 PG (28-34); MEAN CORPUSCULAR HGB CONC 31.7 g/dL (30-36); MEAN PLATELET VOLUME 8.7 FL (6.5-11.5); MONOCYTE# 0.9 X10e3 (0-1.0); MONOCYTE% 7.2 % (3.0-12.0); NEUTROPHIL# 7.9 X10e3 (1.5-7.1); NEUTROPHIL% 61.9 % (40-75); PLATELET COUNT 271 X10e3 (140-420); RED BLOOD COUNT 4.85 X10e (3.90-5.60); RED CELL DISTRIBUTION WIDTH 15.4 % (11.0-15.5); WHITE BLOOD COUNT 12.7 X10e3 (4.0-10.5)
[2017-03-10 09:51] LABS: DIFF IND NO
== END 2017-03-11 12:30 | disposition home or self-care (01) | DRG 885 ==
LOC: P1E 21:13
PROVIDERS: Psychiatry & Neurology Psychiatry
PROC: HZ2ZZZZ Detoxification Services for Substance Abuse Treatment (ICD-10-PCS; principal; 2017-03-07)
DX: F33.9 Major depressive disorder, recurrent, unspecified (principal); R45.851 Suicidal ideations; K74.60 Unspecified cirrhosis of liver; F10.230 Alcohol dependence with withdrawal, uncomplicated; F60.2 Antisocial personality disorder; G89.29 Other chronic pain; B00.9 Herpesviral infection, unspecified; J40 Bronchitis, not specified as acute or chronic
CPT/HCPCS: 85025

== ENCOUNTER 2017-04-03 21:08 | Inpatient (IN) | payer OTHER ==
[~2017-04-03] VITALS: Ht 177.8 cm; Wt 86.2 kg
--- NOTE | ~2017-04-03 | HP ---
Unit #: [id number] #: [id number] Patient: NITIN CABRERA [id number] [place] [address] [id number] I MR#: [id number] NAME: NITIN CABRERA. ROOM: 71 Age: 42 Sex: M Admission Date: 04/03/2017 : 1975 Attending Physician: Collin Ochoa M.D. Admitting Physician: Collin Ochoa M.D. Primary Care Physician: Primary Care Physician No HISTORY AND PHYSICAL HISTORY OF PRESENT ILLNESS Nitin is a 42 year old admitted to [facility] because of his continued polysubstance abuse. PAST MEDICAL HISTORY 1. Long history of alcohol abuse. 2. History of illicit substance abuse to include opioids and methamphetamine. 3. History of withdrawal seizures. 4. Hepatitis C. a. Cirrhosis. 5. Degenerative disc disease. a. Chronic pain. 6. GERD. 7. COPD. PAST SURGICAL HISTORY 1. Appendectomy. 2. Pyloric stenosis release. 3. Cervical disc fusion 06/24/15. ALLERGIES Morphine. Patient reports he is NOT allergic to albuterol. SOCIAL HISTORY He smokes 1 pack per day. Has a long history of alcohol abuse and illicit drug use. He continues to do both. FAMILY HISTORY Medically noncontributory. REVIEW OF SYSTEMS CONSTITUTIONAL: No fever or chills. HEENT: Denies any sore throat, ear pain or runny nose. CARDIOVASCULAR: Denies chest pain, irregular heart rhythm or palpitations. CHEST: He does report a deep harsh cough productive of white to clear sputum and increased shortness of breath. GASTROINTESTINAL: Denies nausea, vomiting, diarrhea or chronic constipation. ENDOCRINE: Denies history of increased thirst or urination. No recent significant weight loss or gain. GENITOURINARY: Denies dysuria, frequency, or hematuria. SKIN: Denies any rashes. Unit #: [id number] #: [id number] Patient: NITIN CABRERA HEMATOLOGIC: Denies history of increased bleeding or bruising. MUSCULOSKELETAL: Denies any hot, swollen joints. No generalized muscle pain. NEUROLOGIC: Denies problems with vision or speech. No frequent, severe headaches. No numbness, tingling or weakness in any extremities. Denies loss of bladder or bowel control. CURRENT MEDICATIONS 1. Detox protocol. 2. Neurontin 800 mg q.i.d. 3. Proventil inhaler p.r.n. 4. Protonix 40 mg daily. 5. Zoloft 100 mg daily. 6. Seroquel 200 mg daily. PHYSICAL EXAMINATION GENERAL: Alert, appearing old than his stated age of 42, no apparent distress. VITAL SIGNS: Blood pressure 100/56, heart rate 80, respirations 16, temperature 98.6. WEIGHT: 190. HEIGHT: 5 feet 10 inches. SKIN: Warm and dry without rash or lesion. HEENT: Normocephalic. TMs not viewed. Oral and nasal passages clear. Conjunctivae clear. PERRLA. EOMs intact. NECK: Supple without lymphadenopathy or thyromegaly. HEART: Regular rate and rhythm without murmur. CHEST: Bilateral decreased breath sounds and wheezing. Harsh cough noted. White sputum. ABDOMEN: Soft, nontender. : Not done. EXTREMITIES: No evidence of cyanosis, clubbing or edema. Moves all without focal deficit. NEUROLOGICAL: Grossly within normal limits. Cranial Nerves: II: Visual yeboah are intact. III, IV AND : Extraocular movements are intact. Pupils are equal, round and reactive to light. V: Facial sensation is grossly normal. VII: Facial movements and expression are normal. VIII: Auditory acuity grossly intact. IX, X: Uvula is midline. Phonation is normal. XI: Patient shrugs shoulders and turns head normally. XII: Tongue protrudes in the midline. Sensory and Motor Function: Sensory and motor sensation is grossly normal. Motor: moves all extremities well. Coordination: Gait is normal. Deep Tendon Reflexes: Intact. DIAGNOSTIC STUDIES IMAGING: Chest x-ray, no acute cardiopulmonary findings. Old posterolateral mid right rib fractures, unchanged. IMPRESSION 1. Psychiatric admission. 2. Chronic obstructive pulmonary disease, acute exacerbation. 3. Continued polysubstance abuse. RECOMMENDATIONS PSYCHIATRIC: Per psychiatrist. MEDICAL: Unit #: [id number] #: [id number] Patient: NITIN CABRERA 1. See no contraindication to participate in facility's activities. 2. Detox per protocol. 3. Start mini-nebs, Levaquin 500 mg p.o. daily x7 days and Depo-Medrol shot 80 mg IM now. MEDICAL PROGNOSIS Good. MEDICAL CONDITION Stable. Dictated by... Minda Stoddard P.A.-C. for Alma Shine/lili TD: 04/04/2017 21:02 JOB #: [id number] HISTORY AND PHYSICAL Page 1 of 1 X Minda Stoddard X HISTORY AND PHYSICAL
--- NOTE | ~2017-04-03 | PA ---
Unit #: [id number] #: [id number] Patient: NITIN CABRERA [id number] [facility] [address] [place] [address] [id number] I MR#: [id number] NAME: NITIN CABRERA. ROOM: 71 Age: 42 Sex: M Admission Date: 04/03/2017 : 1975 Date of Assessment: Attending Physician: Collin Ochoa M.D. Admitting Physician: Collin Ochoa M.D. Primary Care Physician: Primary Care Physician No PSYCHIATRIC ASSESSMENT DATE OF SERVICE 04/04/2017. INFORMANTS The patient, partially reliable and OLOP, reliable. CHIEF COMPLAINT Drinking again. HISTORY OF PRESENT ILLNESS Nitin is a 42-year-old male with multiple admissions to this facility, who reports he relapsed and has had multiple detox seizures. He also reports psychosocial stressors and ongoing suicidal ideation with a plan to overdose on medication. He was admitted for stabilization. PAST PSYCHIATRIC HISTORY As noted, Sully has had many admissions to this facility, the last in 02/2017. FAMILY PSYCHIATRIC HISTORY Alcoholism. SOCIAL HISTORY The patient is and currently staying with family. He has a large family history of chemical dependence making it difficult for him to maintain sobriety. He is unemployed and on disability. He reports that he has a sister in the hospital right now. PAST MEDICAL HISTORY Chronic pain, asthma, genital herpes, and hepatic cirrhosis. MEDICATIONS Please see MAR. ALLERGIES Morphine, penicillin, and albuterol. SUBSTANCE USE HISTORY Extensive history as noted. MENTAL STATUS EXAMINATION Sully presented as a mildly disheveled man, appearing older than his stated age. He was cooperative with the examination. Speech was soft, Unit #: [id number] #: [id number] Patient: NITIN CABRERA but easily understood. Musculoskeletal examination demonstrated mild tremulousness. His mood was depressed with a congruent affect. He was alert and fully oriented. Memory and concentration were fair. Thought processes were goal directed with no active psychosis. He reported suicidal ideation with a plan to overdose on medication. Insight and judgment, fair. Fund of knowledge and abstraction, fair. ASSETS AND LIABILITIES The patient is familiar with local resources and presents voluntarily. Liabilities include multiple hospitalizations and chronic illness. ADMITTING DIAGNOSES AXIS I: Major depressive disorder, recurrent and alcohol dependence with withdrawal, uncomplicated. AXIS II: Antisocial personality traits. AXIS III: Chronic pain, cirrhosis of the liver, and herpes. AXIS IV: AXIS V: PSYCHIATRIC PLAN The patient was admitted and placed on suicide precautions and the alcohol detox protocol. His home medications will be confirmed and restarted with the exception of Suboxone. He will enroll in psychotherapy groups and activities, and physical examination and laboratory studies will be ordered and reviewed. TREATMENT GOALS Resolution of SI, establishment of sobriety, improvement in insight, and improvement in coping skills. DISCHARGE PLANNING Follow up with [facility]. ESTIMATED LENGTH OF STAY 5 days. Dictated by... Collin Ochoa M.D. ROSARIO/sofy TD: 04/06/2017 17:45 JOB #: [id number] PSYCHIATRIC ASSESSMENT Page 1 of 1 X Collin Ochoa MD X PSYCHIATRIC ASSESSMENT
--- NOTE | ~2017-04-03 | PN ---
Unit #: [id number] #: [id number] Patient: NITIN CABRERA [id number] [facility] [address] [place] [address] [id number] I MR#: [id number] NAME: NITIN CABRERA. ROOM: P171 Age: 42 Sex: M Admission Date: 04/03/2017 : 1975 Attending Physician: Collin Ochoa M.D. Admitting Physician: Collin Ochoa M.D. Primary Care Physician: Primary Care Physician Charlotte VELASQUEZ NOTES DATE 04/07/2017 DISCUSSION Nitin continues to have alcohol detox symptoms today, and he now complains of opiate detox symptoms as well including cramping and backache. Tramadol has been partially effective for his pain, but he continues to complain of the absence of Suboxone. He is alert and fully oriented with no active psychosis. He states he is once again willing to consider referral to a long-term rehabilitation facility. ASSESSMENT 1. Major depression. 2. Alcohol dependence. PLAN Continue current treatment plan and work toward discharge to a long-term care facility to allow the patient in a period of extended sobriety and followup. Dictated by... Collin Ochoa M.D. MRH/bzg TD: 04/08/2017 13:41 JOB #: [id number] PEGGY VELASQUEZ NOTES Page 1 of 1 X Collin Ochoa MD X PROGRESS NOTE
--- NOTE | ~2017-04-03 | DS ---
Unit #: [id number] #: [id number] Patient: GIBRAN CABRERA [id number] [facility] [address] [place] [address] [id number] I MR#: [id number] NAME: GIBRAN CABRERA. ROOM: 71 Age: 42 Sex: M Admission Date: 04/03/2017 : 1975 Discharge Date: 04/08/2017 Attending Physician: Collin Ochoa M.D. Primary Care Physician: Primary Care Physician No DISCHARGE SUMMARY REASON FOR ADMISSION Gibran is a 42-year-old man with a history of depression and alcoholism, who reported he recently relapsed. He failed to go to his last offered placement and was readmitted for detox. DIAGNOSTIC STUDIES LABORATORY RESULTS: Please see hospital chart. HOSPITAL COURSE The patient was admitted and placed on suicide precautions and the alcohol detox protocol. Suboxone was not continued, but his other home medications were continued unchanged. The patient was diagnosed with some bronchitis and started on Levaquin for this during the admission. He worked with the social security assessor on possible referral to [facility], but on the date of discharge he said that he was going to go home and then proceed to the [facility] tomorrow transported by his family. DISCHARGE DIAGNOSES AXIS I: Major depression and alcohol dependence with withdrawal. AXIS II: Antisocial personality traits. AXIS III: Chronic pain and cirrhosis of the liver. AXIS IV: AXIS V: DISCHARGE INSTRUCTIONS Follow up with [facility] and primary care physician. DISCHARGE MEDICATIONS Levaquin 500 mg once daily for 5 days for bronchitis. Primary care medicines include Zoloft 100 mg daily for depression, Seroquel 200 mg at bedtime for insomnia, Protonix 40 mg daily for GERD, Neurontin 800 mg q.i.d. for neuropathy, and Proventil inhaler two puffs every 4 hours as needed for shortness of air. CONDITION AT DISCHARGE Fair. PROGNOSIS Fair. DIET AND ACTIVITY Ad artie. Unit #: [id number] #: [id number] Patient: GIBRAN CABRERA Dictated by... Collin Ochoa M.D. MR/modl TD: 04/08/2017 14:00 JOB #: [id number] DISCHARGE SUMMARY Page 1 of 1 X Collin Ochoa MD DISCHARGE SUMMARY
--- NOTE | ~2017-04-03 | CR63 ---
[facility] A Service of [facility] RADIOLOGY TEXT RESULTS PATIENT: GIBRAN CABRERA LOCATION: P1E P171-1 : [birth year] UNIT #: [id number] AGE: [address]: Collin Ochoa MD SEX: M ORDER DR: [id number] [facility] [address] [place], [place] [address] [id number] I MR#: [id number] Acc #: [id number] NAME: GIBRAN CABRERA. : 1975 SEX: M STUDY DATE/TIME: 04/04/2017 11:18 UNIT: P1E ROOM: [facility] STUDY DESCRIPTION: CR Chest 2 View Attending Physician: Collin Ochoa M.D. Ordering Physician: Collin Ochoa M.D. Primary Care Physician: No Primary Care Physician MEDICAL IMAGING REPORT This report is preliminary unless electronic signature is present EXAM Chest, 2 views; 04/04/2017, 1118 hours. CLINICAL HISTORY 42-year-old with complaint of cough, congestion and shortness of air today. Symptoms began yesterday. Evaluate for pneumonia. COMPARISON 12/27/2016 FINDINGS Upright PA and lateral views of the chest demonstrate normal cardiac, mediastinal and hilar contours. The lungs are well expanded and clear. There is no effusion or pneumothorax. There are old healed right posterior 6th, 7th, 8th and 9th rib fractures. IMPRESSION No acute cardiopulmonary findings. Old posterolateral mid right rib fractures unchanged. Dictated by... Linda Dacosta M.D. THIS IS AN ELECTRONICALLY VERIFIED REPORT Linda Dacosta M.D. at 04/05/2017 11:08 AM CRIS/heriberto TD: 04/04/2017 15:25 JOB #: [id number] MEDICAL IMAGING REPORT Page 1 of 1 COPY
--- NOTE | ~2017-04-03 | CO ---
Unit #: [id number] #: [id number] Patient: GIBRAN CABRERA [id number] [facility] [address] [place] [address] [id number] I MR#: [id number] NAME: GIBRAN CABRERA. ROOM: [facility] Age: 42 Sex: M Admission Date: 04/03/2017 : 1975 Attending Physician: Collin Ochoa M.D. Primary Care Physician: Primary Care Physician No Consultation Date: 04/04/2017 CONSULTATION REPORT ESTELA Taveras is a 42-year-old who had complained of a cough for few days prior to admission. He was seen for his admission H and P on 04/04/2017. He was examined and this was addressed under the H and P. Please see H and P dated 03/04/2017. Dictated by... Minda Stoddard P.A.-C. for Alma Shine/sofy TD: 04/05/2017 16:53 JOB #: [id number] CONSULTATION REPORT Page 1 of 1 X Minda Stoddard CONSULTATION REPORT
--- NOTE | ~2017-04-03 | PN ---
Unit #: [id number] #: [id number] Patient: NITIN CABRERA [id number] [facility] [address] [place] [address] [id number] I MR#: [id number] NAME: NITIN CABRERA. ROOM: P171 Age: 42 Sex: M Admission Date: 04/03/2017 : 1975 Attending Physician: Collin Ochoa M.D. Admitting Physician: Collin Ochoa M.D. Primary Care Physician: Primary Care Physician Charlotte WOODS PROGRESS NOTES DATE 04/06/2017 DISCUSSION Nitin has started on Depo-Medrol and an antibiotic for a presumed diagnosis of bronchitis, he continues to complain of pain and wants to go back on Suboxone but I explained that this would not be available to him here. He is depressed in mood with a congruent affect. He is alert and fully oriented with no psychosis. Invega started today. ASSESSMENT Major depression, alcohol dependence. PLAN I will provide tramadol 100 mg at bedtime for the patient's neck pain. Dictated by... Alma Webb/eduardo TD: 04/08/2017 13:12 JOB #: [id number] PEGGY PROGRESS NOTES Page 1 of 1 X Collin Ochoa MD PROGRESS NOTE
[2017-04-04 09:41] LABS: BASOPHIL% 0.4 % (0-2.5); EOSINOPHIL# 0.3 X10e3 (0-0.7); EOSINOPHIL% 5.8 % (0.0-7.0); HEMATOCRIT 43.9 % (38.0-50.0); HEMOGLOBIN 14.5 gm/dL (13.0-16.0); LYMPHOCYTE% 49.5 % (17.0-45.0); MEAN CELL VOLUME 90.4 FL (83-96); MEAN CORPUSCULAR HEMOGLOBIN 29.8 PG (28-34); MEAN PLATELET VOLUME 8.6 FL (6.5-11.5); MONOCYTE# 0.6 X10e3 (0-1.0); MONOCYTE% 9.4 % (3.0-12.0); NEUTROPHIL# 2.1 X10e3 (1.5-7.1); NEUTROPHIL% 34.9 % (40-75); PLATELET COUNT 207 X10e3 (140-420); RED BLOOD COUNT 4.85 X10e (3.90-5.60); RED CELL DISTRIBUTION WIDTH 15.6 % (11.0-15.5)
[2017-04-04 09:50] LABS: DIFF IND NO
[2017-04-04 09:54] LABS: ALBUMIN SERUM 3.6 g/dL (3.5-5.0); BILIRUBIN,TOTAL 0.4 mg/dL (0.2-2.0); BUN/CREATININE RATIO 8.88; CALCIUM SERUM 8.2 mg/dL (8.4-10.2); CREATININE SERUM 0.9 mg/dL (0.6-1.4); GLOM FILT RATE Estimated 103.5 mL/min (>60); PROTEIN TOTAL SERUM 6.5 g/dL (6.0-8.3)
== END 2017-04-08 11:24 | DRG 885 ==
LOC: P1E 22:13
PROVIDERS: Psychiatry & Neurology Psychiatry
PROC: HZ2ZZZZ Detoxification Services for Substance Abuse Treatment (ICD-10-PCS; principal; 2017-04-03)
DX: F33.9 Major depressive disorder, recurrent, unspecified (principal); K74.60 Unspecified cirrhosis of liver; F10.239 Alcohol dependence with withdrawal, unspecified; Z81.1 Family history of alcohol abuse and dependence; Z88.0 Allergy status to penicillin; F60.2 Antisocial personality disorder; F17.200 Nicotine dependence, unspecified, uncomplicated; J40 Bronchitis, not specified as acute or chronic; G89.29 Other chronic pain
CPT/HCPCS: 71020; 80053; 85025; J1040